=== PATIENT | male | born 1945 | race Two or more races ===

== ENCOUNTER 2017-01-18 08:58 | Outpatient (CLI) | payer MEDICARE ==
[2017-01-18 10:38] LABS: Hematocrit 40.1 % (42.0-52.0); Mean Platelet Volume 6.8 fL (7.4-10.4); Red Blood Cell (RBC) Count 4.52 mill/uL (4.70-6.10); White Blood Cell (WBC) Count 6.2 thou/uL (4.8-10.8)
[2017-01-18 10:43] LABS: Prothrombin Time 13.2 SEC (12.0-14.7)
[2017-01-18 10:48] LABS: Bilirubin Negative (Negative); Blood, Urine Negative (Negative); Glucose, Urine (Dipstick) Negative (Negative); Ketone, Urine Negative (Negative); Nitrite Negative (Negative); Protein, Urine (Dipstick) Negative (Neg-Trace); Urobilinogen 0.2 mg/dL (0.2-1.0)
[2017-01-18 10:50] LABS: Bacteria/HPF None Seen HPF (None Seen); Hyaline Casts/LPF 0-3 HYALINE CAST LPF (0-3 Hyaline); Squamous Epithelial None Seen HPF (0-3); WBC/HPF None Seen HPF (0-3)
[2017-01-18 10:57] LABS: Anion Gap 10 mmol/L (10-20); BUN (Urea Nitrogen) 12 mg/dL (8.4-25.7); Calc. Creatinine Clearance 0 mL/min (70-130); Calcium 9.8 mg/dL (7.8-10.44); Carbon Dioxide 32 mmol/L (23-31); Chloride 101 mmol/L (98-107); Estimated GFR-MDRD 73
== END 2017-01-18 08:59 | disposition home or self-care (01) ==
LOC: LABBT 08:58
PROVIDERS: ATTEND Orthopaedic Surgery
DX: Z01.818 Encounter for other preprocedural examination (principal); M19.012 Primary osteoarthritis, left shoulder
CPT/HCPCS: 80048; 81001; 85027; 85610; 86850; 86900; 86901; 87081; 93005; 93010

== ENCOUNTER 2017-01-21 10:00 | Inpatient (IN) | payer MEDICARE ==
[2017-01-18 09:14] VITALS: BMI 25.8
[2017-01-22] MEDS ORDERED: Midazolam HCl 2 mg/2 ml Vial ONE (06:21)
[2017-01-22] MEDS ORDERED: Fentanyl 100 MCG/2 ML VIAL ONE ×5 (06:21→10:08)
[2017-01-22] MEDS ORDERED: Ropivacaine 0.2% HCl/PF 20 ML ONE (06:21)
[2017-01-22] MEDS ORDERED: CEFAZOLIN/Water 2 GM/20 ML SYRINGE ONE (06:22)
[2017-01-22] MEDS ORDERED: Tranexamic Acid 1,000 MG/100 ML BAG ONE ×2 (06:22→09:08)
[2017-01-22] MEDS ORDERED: Vancomycin HCl 1.5 GM in Sodium Chloride 0.9% 250 ML 300 ML IVPB SCH ×2 (07:00→19:00)
--- NOTE | 2017-01-22 07:36 | HP ---
CHIEF COMPLAINT: Left shoulder pain. HISTORY OF PRESENT ILLNESS: Mr. Harry is a 71-year-old right-hand dominant male who presents with left shoulder pain for several years. The pain in his left is greater than his right. 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 The patient has history of 2 previous rotator cuff repairs. The patient states he had pain relief, immediately afterwards the pain elevated. The patient does have a history of chronic opioid use include pain patch as well as oral medications. The patient had extreme overhead elevation and the patient states his pain can be 8/10 without pain medicine, he said it is constant. He had some relief from his most recent injections, but his left hand is not functional. He had some intermittent radicular symptoms, but no constant pain. The patient has extreme pain with overhead motion. I discussed with him operative intervention for his left shoulder and he desires to proceed with shoulder replacement. PAST MEDICAL AND SURGICAL HISTORY: Crohn's abscess, hernia, gallbladder surgical history. Rh 07/08/2009 perirectal abscess, laparoscopic cholecystectomy, 2 previous rotator cuff repairs, and a previous on his left side and a right shoulder rotator cuff repair. MEDICATIONS: Humira, which was stopped in advance of surgery on 11/18/2016, aspirin, atorvastatin, Dexilant, Cymbalta, fentanyl, hydrocodone 10/325 and Detrol. ALLERGIES: No known drug allergies. SOCIAL HISTORY: Right hand dominant male. The patient is a nonsmoker. No illicit drug use. . The patient runs a dental office. PHYSICAL EXAMINATION: GENERAL: Alert and oriented male in no acute distress, resting comfortably in bed. LEFT SHOULDER: Left shoulder shows well-healed previous surgical scars. External rotation is about 10 degrees, elevation is 90 degrees. The patient has with elevation 100, ER 30. The patient has good motion, his strength is just fair. Subscapularis is good. The patient has tenderness to the biceps groove. His loss of stability is negative. The patient is neurovascularly intact. He has equivocal Omid's, positive Morejon, neurovascularly intact. His left upper extremity has got tape adhesion from his previous fentanyl patches on his skin. The patient's MRI shows a humeral head, full thickness supraspinatus tear with leading edge infraspinatus, poorly defined biceps, possible rupture versus tenodesis, muscle atrophy. ASSESSMENT: Large rotator cuff tear with failed arthroscopic rotator cuff repairs. LABORATORY: Negative MRSA screening. The patient's white blood cell count 6.2 , H\T\H 13 and 40, platelet count 200, his INR is 1. The patient's creatinine is 1.01. The patient has a negative UA, ESR 5, CRP of 0.8. ASSESSMENT AND PLAN: Failed left shoulder arthroscopic rotator cuff repair x2 and with full thickness supraspinatus and infraspinatus tear. PLAN: I discussed with patient the risks and benefits of his potential options to include an arthroscopic superior capsular reconstruction versus a left reverse shoulder arthroplasty with possible biceps tenodesis. I discussed with the patient that the reverse shoulder arthroplasty would be a more consistent outcome as far as his pain control. I discussed that he may continue to have pain after surgery. I discussed the risks and benefits of surgery to include pain, scar, bleeding, infection, decreased range of motion or strength, failure of procedure, continued pain despite surgical intervention, decreased function, a different look of the shoulder postoperatively, and the risk of loss of life or limb. The patient understands the risks and benefits of the procedure and elected to proceed. The patient will be taken back to the operative suite for a left shoulder reverse shoulder arthroplasty. SOULEYMANE
[2017-01-22] MEDS ORDERED: Phenylephrine 10 MG/NS 250 ML 250 ML ONE (08:26)
[2017-01-22] MEDS ORDERED: Tranexamic Acid 1,000 MG in Sodium Chloride 0.9% 100 ML IVPB SCH (09:30)
[2017-01-22] MEDS ORDERED: Promethazine HCl 25 MG/ML VIAL IM PRN ×2 (09:31→09:39)
[2017-01-22] MEDS ORDERED: Ondansetron HCl/PF 4 MG/2 ML Vial IVP PRN ×3 (09:31→10:44)
[2017-01-22] MEDS ORDERED: Promethazine HCl 25 MG/ML VIAL SLOW IVP PRN (09:31)
[2017-01-22] MEDS ORDERED: Meperidine HCl/PF 25 MG/ML VIAL SLOW IVP PRN (09:31)
[2017-01-22] MEDS ORDERED: Ropivacaine 0.2% 550 ML 550 ML NERVE BLCK SCH (09:39)
[2017-01-22] MEDS ORDERED: Zolpidem Tartrate 5 MG TAB PO PRN (09:39)
[2017-01-22] MEDS ORDERED: HYDROcodone/Acetaminophen 10/325 mg Tablet PO PRN ×3 (09:39→10:44)
[2017-01-22] MEDS ORDERED: traMADol HCl 50 MG TAB PO PRN ×4 (09:39→10:44)
--- NOTE | 2017-01-22 09:56 | RAD ---
TWO VIEWS LEFT SHOULDER: Date: 01-22-17 Comparison: None. History: Arthroplasty. FINDINGS: There is a left shoulder arthroplasty present, with no evidence for hardware failure, dislocation, o r acute fracture. Cutaneous cinthia are present. IMPRESSION: Status post left shoulder arthroplasty. POS: RENEE
[2017-01-22] MEDS ORDERED: diphenhydrAMINE 50 MG CAP PO PRN (10:44)
[2017-01-22] MEDS ORDERED: Bisacodyl 10 MG SUPP PR PRN (10:44)
[2017-01-22] MEDS ORDERED: Ondansetron ODT 4 MG TAB PO PRN (10:44)
[2017-01-22] MEDS ORDERED: Milk Of Magnesia 30 ML UDCUP PO PRN (10:44)
[2017-01-22] MEDS ORDERED: Acetaminophen 325 MG TAB PO PRN (10:44)
[2017-01-22] MEDS ORDERED: [UNRECOGNIZED DRUG - REMARK] TOP PRN (11:14)
--- NOTE | 2017-01-22 11:44 | OP ---
DATE OF PROCEDURE: 01/22/2017 PREOPERATIVE DIAGNOSIS: Full thickness retracted supraspinatus tear and leading edge of the suprasp inatus tear. POSTOPERATIVE DIAGNOSIS: Full thickness retracted supraspinatus tear and leading edge of the supras pinatus tear, also with previous biceps tenodesis. PROCEDURE PERFORMED: Left reverse shoulder arthroplasty. STAFF: Seth Nevarez M.D. CRIB PAD MAKER: Efrain Leo PA-C ANESTHESIA: Caraballo. The patient received general endotracheal intubation with interscalene block. ESTIMATED BLOOD LOSS: 200 mL. TOURNIQUET TIME: None. IMPLANTS: A Tornier 25 mm baseplate with a center 36 mm glenoid Aequalis reversed II sphere, a size 3B standard Aequalis Ascend Flex stem and a reverse +6 mm poly insert, and a reversed flex shoulder low offset tray. ANTIBIOTICS: Vancomycin 1.5 grams, TXA 2 grams, TXA 1 gram. COMPLICATIONS: None. HISTORY OF PRESENT ILLNESS: Mr. Harry is a 71-year-old male with history of 2 previous rotator cuff surgeries. The patient had failure and MRI evidence of an increase full thickness supraspinatu s tear and leading edge infraspinatus tear. I discussed with the patient that either a superior cap sular reconstruction versus reverse shoulder arthroplasty would be performed. I discussed risks and benefits of both. The patient elected for reverse shoulder arthroplasty. I discussed the risks an d benefits of surgery to include pain, scar, bleeding, infection, damage to vital structures, decrea sed motion or strength, fracture, need for further surgeries, failure of procedure, continued pain a nd despite surgical intervention, need for revision surgery, loss of life or limb. The patient unde rstood the risks and benefits and elected to proceed. PROCEDURE IN DETAIL: Timeout was performed designating the patient's left upper extremity as the op erative site based on sight, consents, and markings. The left upper extremity was prepped and drape d in sterile fashion. He had been placed in a beach chair position. We made a deltopectoral incisi on, came down. The vein was actually looked scarred in from his previous portal site and did not lo ok very functional. It was taken medially, actually was tagged and was ligated the cephalic vein. We then took the deltoid, came into the plane, found the scar plane in the deltopectoral fascia whic h was taken down, biceps had been tenodesed, it was utilized to evaluate the subscapularis. We took down the subscapularis, peeled off the subscapularis tendon, took down the subscapularis, so we the n exposed the entire head. I cut off the articular head and articular surface, there was no suprasp inatus remaining, it was just infraspinatus leading edge posteriorly. I cut the head, removed the b one spur, then went up to 20 degrees of retroversion, broached and then placed my size 3B stem, impa cted it. I then moved back to the patient's shoulder. I then broached. After I did this I then ex posed the glenoid at 360 degree release with cautery just on the bone edge blunt dissection, I then exposed the patient's inferior neck using blunt dissection, ensured staying off the bone. After com pleting my 360 degree release and being happy with the complete resection of the capsule at 360 degr ees we then cleaned up some of the cartilage. I then placed my center hole inferiorly to place my 2 5 mm baseplate, drilled. I then used a 2 step process to clean cartilage and circumferentially ream and then placed my baseplate, tapped into place, drilled 2 anterior and posterior nonlocking screws , two superior and inferior locking screws. After being happy with stability of the scapula I then placed my centralized 36 mm sphere, screwed into place, had good fit. I then moved back to the [facility]. I reduced with 3B and 6 mm poly, had a tight fit, was overall happy. I then removed, placed my 3B stem, I drilled holes for #3 FiberWire #5 Ethibond to pass the subscapularis, tied about 20 d egrees or 15 degrees of external rotation sewed it into place. I then washed. I then closed the elder bscapularis. I then washed out the joint. There was a tear in the deltoid which was closed with #2 Vicryl, #2 Vicryl to close the deltopectoral interval. I then closed subcutaneous with 2-0 and the n put cinthia in the incision, placed paper tape. The patient had a dressing applied. He will be p laced in a sling. He will work on elbow, wrist, and hand motion, receive antibiotics, evaluate post op pain tomorrow.
[2017-01-22] MEDS: Ketorolac Tromethamine 30 MG/ML VIAL IVP SCH ×3 (13:24→23:49)
[2017-01-22] MEDS: CEFAZOLIN/Water 2 GM/20 ML SYRINGE SLOW IVP SCH ×2 (15:09→21:28)
[2017-01-22] MEDS ORDERED: Lidocaine 1% PF 5 ML VIAL ONE (15:11)
[2017-01-22] MEDS ORDERED: PHENYLEPHRINE-NS 100 MCG/ML 10 ML SYRINGE ONE (15:11)
[2017-01-22] MEDS ORDERED: Glycopyrrolate 0.2 MG/ML 5 ML SYRINGE ONE (15:11)
[2017-01-22] MEDS ORDERED: Propofol 200 MG/20 ML VIAL ONE (15:11)
[2017-01-22] MEDS ORDERED: Ropivacaine 0.5% HCl/PF (150 MG/30 ML VIAL) ONE (15:17)
[2017-01-22] MEDS: HYDROcodone/Acetaminophen 10/325 mg Tablet PO PRN ×2 (16:15→21:57)
[2017-01-22] MEDS: Famotidine 20 MG TAB PO SCH ×2 (17:38→20:24)
[2017-01-22] MEDS: Fentanyl 100 MCG/2 ML VIAL IV PRN ×2 (20:21→23:54)
[2017-01-22] MEDS ORDERED: TROSPIUM 20 MG TABLET PO SCH (21:00)
[2017-01-22] MEDS ORDERED: Atorvastatin Calcium 20 MG TAB PO SCH (21:00)
[2017-01-23] MEDS: HYDROcodone/Acetaminophen 10/325 mg Tablet PO PRN ×2 (02:15→06:16)
[2017-01-23] MEDS: Ketorolac Tromethamine 30 MG/ML VIAL IVP SCH (05:49)
[2017-01-23] MEDS: Famotidine 20 MG TAB PO SCH (08:04)
[2017-01-23 09:17] VITALS: BP 127/78; TEMP 98
--- NOTE | 2017-01-23 12:18 | DIS ---
DATE OF ADMISSION: 01/22/2017 DATE OF DISCHARGE: 01/23/2017 PREOPERATIVE DIAGNOSES: Left full thickness supraspinatus tear, retracted, irreparable. POSTOPERATIVE DIAGNOSES: Biceps tenotomy, . PROCEDURE PERFORMED: Left reverse shoulder arthroplasty. HISTORY OF PRESENT ILLNESS: Mr. Harry is a pleasant 71-year-old male with multiple years of lef t shoulder pain. Patient has a history of chronic pain in his left shoulder and continued to give h im difficulty. I discussed the risk of his left reverse shoulder arthroplasty to include pain, scar , bleeding, infection, damage to his vital structures, nonunion, malunion, fracture, failure of impl ants. The patient desired to proceed with surgery, understood the risks and benefits and elected to proceed. The patient underwent an uneventful left reverse shoulder arthroplasty. Postoperatively pain was controlled with a block and will be discharged home with pain medications as per Dr. Gustavo mondragon. The patient will restart his home medications. The patient will follow up with me in 2 week s. He will perform elbow, forearm, wrist, and hand motion until followup and remain in the sling.
== END 2017-01-23 09:45 | disposition home or self-care (01) | DRG 483 ==
LOC: SURG A 01-22 05:44 → SURG B 01-22 10:19
PROVIDERS: ADMIT Orthopaedic Surgery; ATTEND Orthopaedic Surgery
PROC: 0RRK00Z Replacement of Left Shoulder Joint with Reverse Ball and Socket Synthetic Substitute, Open Approach (ICD-10-PCS; principal; 2017-01-22)
PROC: 3E0T3BZ Introduction of Anesthetic Agent into Peripheral Nerves and Plexi, Percutaneous Approach (ICD-10-PCS; 2017-01-22)
DX: M75.102 Unspecified rotator cuff tear or rupture of left shoulder, not specified as traumatic (principal); K50.90 Crohn's disease, unspecified, without complications; Z79.891 Long term (current) use of opiate analgesic; Z79.82 Long term (current) use of aspirin; G89.29 Other chronic pain; M25.512 Pain in left shoulder
CPT/HCPCS: 36415; 80048; 81001; 85027; 85610; 85652; 86140; 86850; 86900; 86901; 87081; 93005; 93010; A4216; A4306; G8978-GP-CH; G8979-GP-CH; G8980-GP-CH; G8987-GO-CJ; G8988-GO-CJ; G8989-GO-CJ; J1885; J2001; J2250; J2704; J2795; J3010; J3370; J7050

== ENCOUNTER 2017-04-24 08:01 | Outpatient (CLI) | payer MEDICARE | END 2017-04-24 08:02 | disposition home or self-care (01) | LOC: BICCT 08:01 | PROVIDERS: ATTEND Internal Medicine Gastroenterology | DX: K50.10 Crohn's disease of large intestine without complications (principal); R10.13 Epigastric pain; K59.00 Constipation, unspecified; N28.1 Cyst of kidney, acquired; Z90.49 Acquired absence of other specified parts of digestive tract | CPT/HCPCS: 74160 ==

== ENCOUNTER 2018-03-05 12:22 | Day surgery (SDC) | payer MEDICARE ==
[2018-03-04 11:39] VITALS: BMI 25.8
[2018-03-05] MEDS ORDERED: Sodium Chloride 0.9% 10 ML ONE (13:42)
[2018-03-05] MEDS ORDERED: Bupivacaine HCl 0.5%/Epinephrine 1:200,000/PF 30 ml Vial ONE ×2 (13:42→15:55)
[2018-03-05] MEDS ORDERED: CEFAZOLIN 1 GM VIAL ONE (14:40)
[2018-03-05] MEDS ORDERED: Sodium Chloride 0.9% 100 ML ONE (14:41)
[2018-03-05] MEDS ORDERED: Fentanyl 100 MCG/2 ML VIAL ONE (15:16)
[2018-03-05] MEDS ORDERED: Propofol 500 MG/50 ML VIAL ONE (15:25)
[2018-03-05] MEDS ORDERED: Midazolam HCl 2 mg/2 ml Vial ONE (15:30)
[2018-03-05] MEDS ORDERED: Bupivacaine/Epinephrine 0.25% 30 ML VIAL ONE (16:30)
[2018-03-05] MEDS ORDERED: Ondansetron PF 4 MG/2 ML Vial ONE (16:32)
[2018-03-05] MEDS ORDERED: PROPOFOL 200 MG/20 ML VIAL ONE (16:32)
--- NOTE | 2018-03-06 08:13 | RAD ---
INTRAOPERATIVE RADIOGRAPH OF THORACIC SPINE: Date: 03/05/18 COMPARISON: None. HISTORY: Stimulator placement. FINDINGS: A single, coned-down frontal radiograph of the thoracic spine demonstrates two dorsal column stimulat ors overlying the mid thoracic spine. Exact location is limited on single coned-down view. IMPRESSION: Intraoperative imaging as above. POS: JOHN PAUL
--- NOTE | 2018-03-07 07:33 | OP ---
DATE OF PROCEDURE: 03/05/2018 PREOPERATIVE DIAGNOSES: 1. Chronic abdominal pain. 2. Chronic pain syndrome. 3. Complex regional pain syndrome. ANESTHESIA: TIVA. PROCEDURES PERFORMED: 1. Implantation of a right spinal cord stimulation electrode system, [employer]. 2. Implantation of a left spinal cord stimulation electrode array, [employer]. 3. Implantation of non-rechargeable internal pulse generator. 4. Intraoperative programming. SUMMARY: Risks and benefits were discussed with the patient including, but not limited to bleeding, infection, worsening of pain, and relief of pain and he understood these risks. He has already had a successful trial of percutaneous outpatient spinal cord stimulation. He was taken to the OR, prepped and draped in standard fashion, placed prone, DuraPrep prep and let to dry. Fluoroscopic guidance was used to identify the thoracolumbar junction. The T12-L1 interspace was chosen as entry into the spinal canal. Incision was made down to the spinous process and the Bovie and Metzenbaum for dissection and hemostasis through the fascia. The supplied Tuohy needles were advanced into the ligament of flavum at L1-L2 using both the right and left paramedian approach, loss of resistance technique; one pass, no paresthesia, CHF, or heme. The left electrode was implanted over the dorsal columns with the most cephalad electrode at the superior endplate of T5. The right electrode was then placed parallel to the first at the superior endplate of T5. Intraoperative programming achieved appropriate back and abdominal stimulation corresponding and concordant with the patient's dermatology. The stylets were then removed intact. The needles were removed intact. Each lead was anchored using supplied [employer] locking anchors and each anchor to the fascia using two 2-0 silk sutures. Attention was then turned to the pocket, left buttock that was a previously designated site for the generator chosen by the patient. After adequate local anesthesia, an incision was carried out to the fascia. The fascia was undermined to form the pocket. Tunneling between incisions using supplied straw tunneler. The leads were passed, placed into the IPG. All impedances were checked and were intact. The IPG was then placed in the pocket logo side out and closure was accomplished in both incisions using interrupted 2-0 Vicryl in layers and running subcuticular 4 -0 Rapide. Dermabond and 4x4s with Medipore tape was used for dressing. Prior to closure, all counts were correct x2. There were no complications. Job ID: [id number] MTDD
== END 2018-03-05 18:00 | disposition home or self-care (01) ==
LOC: SDC 12:22
PROVIDERS: ATTEND Anesthesiology Pain Medicine
PROC: 0JH70DZ Insertion of Multiple Array Stimulator Generator into Back Subcutaneous Tissue and Fascia, Open Approach (ICD-10-PCS; principal; 2018-03-05)
PROC: 00HU3MZ Insertion of Neurostimulator Lead into Spinal Canal, Percutaneous Approach (ICD-10-PCS; 2018-03-05)
DX: G89.4 Chronic pain syndrome (principal); G90.50 Complex regional pain syndrome I, unspecified; M10.9 Gout, unspecified; Z79.82 Long term (current) use of aspirin; Z79.899 Other long term (current) drug therapy
CPT/HCPCS: 72020; 76001; J0670; J0690; J2250; J2405; J2704; J3010; J3490; J7050

== ENCOUNTER 2018-08-13 12:09 | Day surgery (SDC) | payer MEDICARE ==
[2018-08-12 12:31] VITALS: BMI 26.5
[2018-08-13] MEDS ORDERED: PROPOFOL 200 MG/20 ML VIAL ONE (13:26)
[2018-08-13] MEDS ORDERED: CEFAZOLIN 1 GM VIAL ONE (13:30)
[2018-08-13] MEDS ORDERED: Sodium Chloride 0.9% 100 ML ONE (13:30)
[2018-08-13] MEDS ORDERED: Sodium Chloride 0.9% 0 ML ONE (14:32)
[2018-08-13] MEDS ORDERED: Bupivacaine HCl 0.5%/Epinephrine 1:200,000/PF 30 ml Vial ONE (14:32)
[2018-08-13] MEDS ORDERED: Fentanyl 100 MCG/2 ML VIAL ONE (14:50)
[2018-08-13] MEDS ORDERED: Midazolam HCl 2 mg/2 ml Vial ONE (14:50)
[2018-08-13] MEDS ORDERED: Propofol 500 MG/50 ML VIAL ONE (15:29)
[2018-08-13] MEDS ORDERED: HYDROcodone/Acetaminophen 5/325 mg Tablet ONE (17:13)
--- NOTE | 2018-08-13 17:15 | RAD ---
Frontal radiograph thoracic spine: 08/13/2018 HISTORY: Pain stimulator FINDINGS: There is a single coned down frontal radiograph of the spine. This may represent the upper lumbar spine. There is a metallic linear structure partially overlying the vertebral bodies. No pain stimulating leads noted on this exam. IMPRESSION: Limited radiograph of the spine.
== END 2018-08-13 17:50 | disposition home or self-care (01) ==
LOC: SDC 12:09
PROVIDERS: ATTEND Anesthesiology Pain Medicine
PROC: 00PU3MZ Removal of Neurostimulator Lead from Spinal Canal, Percutaneous Approach (ICD-10-PCS; principal; 2018-08-13)
PROC: 00HU3MZ Insertion of Neurostimulator Lead into Spinal Canal, Percutaneous Approach (ICD-10-PCS; 2018-08-13)
DX: T85.122A Displacement of implanted electronic neurostimulator of spinal cord electrode (lead), initial encounter (principal); G89.4 Chronic pain syndrome; M96.1 Postlaminectomy syndrome, not elsewhere classified; G90.50 Complex regional pain syndrome I, unspecified; K50.90 Crohn's disease, unspecified, without complications; E78.5 Hyperlipidemia, unspecified; G47.33 Obstructive sleep apnea (adult) (pediatric); Z79.82 Long term (current) use of aspirin; Z79.899 Other long term (current) drug therapy
CPT/HCPCS: 63663; 72020; 76000; C1778; J0131; J0670; J0690; J2250; J2704; J3010; J3490

== ENCOUNTER 2018-10-08 08:22 | Outpatient (CLI) | payer MEDICARE ==
--- NOTE | 2018-10-08 09:21 | RAD ---
RIGHT FORELEG 2 VIEWS: INDICATION: Pain along the right lower lateral aspect of the foreleg. COMPARISON: None. FINDINGS: No acute fracture or subluxation is evident. No area of abnormal periosteal reaction is noted. No o steolytic or osteoblastic lesion is identified. There are vascular calcifications within the proxima l foreleg. IMPRESSION: No acute osseous abnormality. POS: CET
== END 2018-10-08 08:23 | disposition home or self-care (01) ==
LOC: BICRAD 08:22
PROVIDERS: ATTEND Family Medicine
DX: M79.604 Pain in right leg (principal)

== ENCOUNTER 2018-10-24 05:38 | Day surgery (SDC) | payer MEDICARE ==
[2018-10-20 09:03] VITALS: BMI 25.8
--- NOTE | 2018-10-23 23:11 | HP ---
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 He has had his current stimulator system in for many years. Unfortunately, he has had to have it revised previously for migration and now the line leaks have migrated again. He hopes to discuss paddle lead placement. PAST MEDICAL HISTORY: Significant for Crohn disease and chronic back pain. SURGICAL HISTORY: Rotator cuff x2 in the left shoulder and then one time on the right. CURRENT MEDICATIONS: 1. Humira. 2. Actonel. 3. Lipitor. 4. Detrol LA. ALLERGIES: NO KNOWN DRUG ALLERGIES. PHYSICAL EXAMINATION: GENERAL: The patient is alert and oriented x3. NEUROLOGIC: Gait is normal. No ataxia. EXTREMITIES: Upper extremity motor exam is normal. Lower extremity motor exam is normal. ASSESSMENT: Chronic pain syndrome and dorsal column stimulator dysfunction. PLAN: Dr. López met with the patient, reviewed imaging, advocated for dorsal column stimulator revision with paddle lead placement. He explained to the patient the risks, benefits, and alternatives to the procedure. The patient expressed understanding and elected to move forward with surgery as discussed. I do believe the patient is mentally competent and capable of making medical decisions for himself. We will move forward with surgery as planned. Job ID: [id number]
[2018-10-24] MEDS ORDERED: ceFAZolin Sodium (SDC) 2 GM/100 ML BAG ONE ×2 (06:03→11:35)
[2018-10-24] MEDS ORDERED: Thrombin 5000 UNITS/5 ML VIAL ONE (06:24)
[2018-10-24] MEDS ORDERED: Bupivacaine HCl 0.5%/Epinephrine 1:200,000/PF 30 ml Vial ONE (06:24)
[2018-10-24] MEDS ORDERED: Fentanyl 100 MCG/2 ML VIAL ONE (06:59)
[2018-10-24] MEDS ORDERED: HYDROmorphone 2 MG/ML VIAL ONE (07:52)
[2018-10-24] MEDS ORDERED: HYDROcodone/Acetaminophen 5/325 mg Tablet ONE (11:01)
--- NOTE | 2018-10-24 11:50 | RAD ---
THORACIC SPINE: A single AP fluoroscopic view taken. INDICATION: Dorsal column stimulator placement. FINDINGS/IMPRESSION: A single image shows retractors in place overlying the lower thoracic spine and dorsal column leads o verlie the lower thoracic spine and what appears to be the T9 and T10 levels. POS: JOHN PAUL
[2018-10-24] MEDS ORDERED: PHENYLEPHRINE-NS 100 MCG/ML 10 ML SYRINGE ONE (13:52)
[2018-10-24] MEDS ORDERED: PROPOFOL 200 MG/20 ML VIAL ONE (13:52)
[2018-10-24] MEDS ORDERED: Dexamethasone 20 MG/5 ML VIAL ONE (13:52)
[2018-10-24] MEDS ORDERED: ePHEDrine 50 MG/ML VIAL ONE (13:52)
[2018-10-24] MEDS ORDERED: Lidocaine 1% PF 5 ML VIAL ONE (13:52)
[2018-10-24] MEDS ORDERED: Ondansetron PF 4 MG/2 ML Vial ONE (13:52)
[2018-10-24] MEDS ORDERED: Ketorolac Tromethamine 30 MG/ML VIAL ONE (13:52)
[2018-10-24] MEDS ORDERED: Glycopyrrolate 0.2 MG/ML 5 ML SYRINGE ONE (13:52)
[2018-10-24] MEDS ORDERED: Rocuronium Bromide 10 MG/ML (10ML VIAL) ONE (13:52)
--- NOTE | 2018-10-24 16:26 | OP ---
DATE OF PROCEDURE: 10/24/2018 OB TECH: Sourav Vega PA-C. INDICATION: Malfunctioning dorsal column stimulator. PROCEDURE PERFORMED: Revision of dorsal column stimulator. ANESTHESIA: General. DESCRIPTION OF PROCEDURE: The patient was brought into the operating room and placed under general anesthesia. He was flipped from the supine to prone position on the operating room table. The 3 linear incisions were prepped and draped. The 2 were pre-existing incisions, one over the generator side, which was well tipped. The second was a lower thoracic upper lumbar incision, which was at the location of anchor, and the third was an incision around the T6 lamina. After prepping and draping and after an appropriate preoperative pause, the incisions were opened. A laminectomy was performed along the inferior aspect of T6 and the location was confirmed using C-arm fluoroscopy in the AP plane. After performing the laminectomy, the line, lead, electrodes as well as the generator were removed in total. Paddle lead electrodes were then passed from the hip incision up to the thoracic incision and carefully placed within the epidural space. The location was confirmed using C-arm fluoroscopy in AP plane, which showed them spanning the C5-C6 interspace and they were located along the midline. The appropriate location was confirmed by both the device rep as well as Dr. Reynoso. The leads were then secured into place with multiple suture. The paddle lead electrodes were then connected to the same generator that the patient had in before surgery and that was carefully tucked away in the same pocket over the left hip. All incisions were then irrigated and hemostasis was maintained throughout. The wounds were then closed in anatomic layers and a pressure dressing was applied. There were no known procedural complications. Job ID: [id number]
== END 2018-10-24 12:20 | disposition home or self-care (01) ==
LOC: SDC 05:38
PROVIDERS: ATTEND Neurological Surgery
PROC: 00WU0MZ Revision of Neurostimulator Lead in Spinal Canal, Open Approach (ICD-10-PCS; principal; 2018-10-24)
PROC: 0JWT0MZ Revision of Stimulator Generator in Trunk Subcutaneous Tissue and Fascia, Open Approach (ICD-10-PCS; 2018-10-24)
DX: T85.192A Other mechanical complication of implanted electronic neurostimulator of spinal cord electrode (lead), initial encounter (principal); G89.4 Chronic pain syndrome; K50.90 Crohn's disease, unspecified, without complications; Z79.899 Other long term (current) drug therapy
CPT/HCPCS: 72020; 76000; J0670; J0690; J1170; J3010

== ENCOUNTER 2019-02-24 07:47 | Outpatient (CLI) | payer MEDICARE ==
[2019-02-24 10:39] LABS: Hemoglobin 14.7 g/dL (14.0-18.0); Mean Corpuscular HGB CONC 34.1 g/dL (32.0-36.0); Mean Corpuscular Hemoglobin 29.9 pg (27.0-31.0); Mean Corpuscular Volume 87.7 fL (78.0-98.0); Mean Platelet Volume 6.4 fL (7.4-10.4); Platelet Count 220 thou/uL (130-400); RBC Distribution Width 12.9 % (11.5-14.5); Red Blood Cell (RBC) Count 4.92 mill/uL (4.70-6.10); White Blood Cell (WBC) Count 10.2 thou/uL (4.8-10.8)
[2019-02-24 10:44] LABS: INR-International Normal Ratio 0.9; PTT 23.3 SEC (22.9-36.1); Prothrombin Time 12.1 SEC (12.0-14.7)
[2019-02-24 10:50] LABS: Anion Gap 9 mmol/L (10-20); BUN (Urea Nitrogen) 15 mg/dL (8.4-25.7); Calc. Creatinine Clearance 0 mL/min (70-130); Calcium 9.2 mg/dL (7.8-10.44); Carbon Dioxide 31 mmol/L (23-31); Chloride 101 mmol/L (98-107); Estimated GFR-MDRD 76; Glucose 164 mg/dL (83-110); Potassium 3.9 mmol/L (3.5-5.1); Sodium 137 mmol/L (136-145)
== END 2019-02-24 07:48 | disposition home or self-care (01) ==
LOC: LABBT 07:47
PROVIDERS: ATTEND Surgery
DX: Z01.812 Encounter for preprocedural laboratory examination (principal); M54.16 Radiculopathy, lumbar region; M48.061 Spinal stenosis, lumbar region without neurogenic claudication
CPT/HCPCS: 80048; 85027; 85610; 85730

== ENCOUNTER 2019-03-03 05:43 | Day surgery (SDC) | payer MEDICARE ==
[2019-02-24 09:20] VITALS: BMI 25.8
[2019-03-03] MEDS ORDERED: Thrombin 5000 UNITS/5 ML VIAL ONE (06:36)
[2019-03-03] MEDS ORDERED: Sodium Chloride 0.9% 10 ML ONE (06:36)
[2019-03-03] MEDS ORDERED: Fentanyl 250 MCG/5 ML VIAL ONE (06:58)
[2019-03-03] MEDS ORDERED: tiZANidine HCl 4 MG TAB PO PRN (10:08)
[2019-03-03] MEDS ORDERED: Acetaminophen 325 MG TAB PO PRN (10:08)
[2019-03-03] MEDS ORDERED: Acetaminophen/Codeine 30-300mg Tablet PO PRN (10:08)
[2019-03-03] MEDS ORDERED: Milk Of Magnesia 30 ML UDCUP PO PRN (10:08)
[2019-03-03] MEDS ORDERED: Ondansetron PF 4 MG/2 ML Vial IVP PRN (10:08)
[2019-03-03] MEDS ORDERED: Mag-Al 1200 mg/1200 mg/30 ML UDCUP PO PRN (10:08)
[2019-03-03] MEDS ORDERED: traMADol HCl 50 MG TAB PO PRN (10:08)
[2019-03-03] MEDS ORDERED: Fleet Enema 133 ML BOT PR PRN (10:08)
[2019-03-03] MEDS ORDERED: Bisacodyl 10 MG SUPP PR PRN (10:08)
[2019-03-03] MEDS ORDERED: SUMAtriptan Succinate 50 MG TAB PO PRN (10:21)
[2019-03-03] MEDS ORDERED: Morphine 2 MG/ML SYRINGE ONE ×3 (10:49→13:47)
[2019-03-03] MEDS ORDERED: Morphine 4 MG/ML VIAL ONE (11:14)
[2019-03-03] MEDS ORDERED: Tamsulosin HCl 0.4 MG CAP PO SCH (12:00)
[2019-03-03] MEDS ORDERED: CEFAZOLIN 2 GM in Premix Bag 1 BAG IVPB SCH (14:00)
[2019-03-03] MEDS ORDERED: HYDROcodone/Acetaminophen 7.5/325 mg Tablet ONE (14:15)
[2019-03-03] MEDS ORDERED: Tamsulosin HCl 0.4 MG CAP ONE (14:16)
[2019-03-03] MEDS ORDERED: Vecuronium 10 MG VIAL ONE (14:36)
[2019-03-03] MEDS ORDERED: ePHEDrine/0.9% NaCl/PF SYRINGE 50 mg/10 ml ONE (14:36)
[2019-03-03] MEDS ORDERED: PROPOFOL 200 MG/20 ML VIAL ONE (14:36)
[2019-03-03] MEDS ORDERED: Glycopyrrolate 0.2 MG/ML 5 ML SYRINGE ONE (14:36)
[2019-03-03] MEDS ORDERED: Ondansetron PF 4 MG/2 ML Vial ONE (14:36)
--- NOTE | 2019-03-03 14:54 | OP ---
DATE OF PROCEDURE: 03/03/2019 LOCATION: OR 12. ASSURANCE SOURCING MANAGER: Gabe Swanson PA-C. PREPROCEDURE DIAGNOSIS: Lumbar stenosis with low back and right greater than left leg pain. POSTPROCEDURE DIAGNOSIS: Lumbar stenosis with low back and right greater than left leg pain. PROCEDURE PERFORMED: L3-L4 and L4-L5 laminectomies, partial facetectomies, and foraminotomies over the L3, L4, and L5 nerve roots. DESCRIPTION OF PROCEDURE: After informed consent was obtained from the patient, the patient was brought to the OR. Proper patient, pause, and identification were carried out. He was placed under excellent endotracheal anesthesia and positioned prone on the OR table. All appropriate points were padded. We identified a small incision that would allow for approach to the L3, L4, L5 dorsal spines and this region was sterilely cleansed, prepared, and draped. Proper patient, pause, and identification were carried out. The wound was then opened with combination of sharp, monopolar, and blunt dissection. We exposed the L3, L4, L5 dorsal spines and lamina. Localization film confirmed area of interest and then performed L3, L4, L5 laminectomies, partial facetectomies, and foraminotomies. There was no spinal fluid leak. Copious irrigation occurred throughout as did maximizing hemostasis. The wound was then closed in anatomic layers following sprinkling of vancomycin powder. The patient emerged from anesthesia. Job ID: [id number]
[2019-03-03] MEDS: Sodium Chloride 0.9% 1,000 ML IV SCH (15:59)
[2019-03-03] MEDS: CEFAZOLIN 2 GM in Premix Bag 1 BAG IVPB SCH ×2 (16:53→23:07)
[2019-03-03] MEDS: Morphine 2 MG/ML SYRINGE SLOW IVP PRN ×3 (17:19→23:06)
[2019-03-03] MEDS: Trospium 20 MG TAB PO SCH (20:58)
[2019-03-03] MEDS: HYDROcodone/Acetaminophen 7.5/325 mg Tablet PO PRN (20:58)
[2019-03-03] MEDS ORDERED: Atorvastatin Calcium 20 MG TAB PO SCH (21:00)
[2019-03-03] MEDS ORDERED: Citalopram 20 MG TAB PO SCH (21:00)
[2019-03-04] MEDS: Sodium Chloride 0.9% 1,000 ML IV SCH (00:31)
[2019-03-04 00:38] VITALS: BP 151/79; TEMP 99
[2019-03-04] MEDS ORDERED: HYDROcodone/Acetaminophen 7.5/325 mg Tablet ONE (05:57)
[2019-03-04] MEDS ORDERED: predniSONE 20 MG TAB PO SCH (08:00)
[2019-03-04] MEDS: Trospium 20 MG TAB PO SCH (08:33)
[2019-03-04] MEDS: HYDROcodone/Acetaminophen 7.5/325 mg Tablet PO PRN (09:54)
--- NOTE | 2019-03-04 11:41 | PRG ---
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 His leg pain has resolved. He has some incisional pain. He has already been mobilizing, voiding on his own, and tolerating orals. He has excellent strength. We went over do's and don'ts in the postoperative period, and followup is arranged. Job ID: [id number]
[2019-03-04] MEDS ORDERED: CEFAZOLIN 2 GM in Premix Bag 1 BAG IVPB SCH (16:00)
--- NOTE | 2019-03-05 21:21 | EKG ---
Test Reason : PREOP Blood Pressure : / mmHG Vent. Rate : 082 BPM Atrial Rate : 082 BPM P-R Int : 150 ms QRS Dur : 086 ms QT Int : 316 ms P-R-T Axes : 027 014 038 degrees QTc Int : 369 ms Normal sinus rhythm Normal ECG When compared with ECG of 18-JAN-2017 09:40, Criteria for Inferior infarct are no longer Present T wave inversion no longer evident in Inferior leads T wave amplitude has decreased in Lateral leads Confirmed by Anuja VARGAS ([id number]) on 03/05/2019 9:21:21 PM Referred By: FRANCOIS Confirmed By:Anuja VARGAS
== END 2019-03-04 10:10 | disposition home or self-care (01) ==
LOC: SDC 05:43 → SURG B 10:08 → SDC 03-04 10:10
PROVIDERS: ATTEND Surgery
PROC: 01NB0ZZ Release Lumbar Nerve, Open Approach (ICD-10-PCS; principal; 2019-03-03)
DX: M48.061 Spinal stenosis, lumbar region without neurogenic claudication (principal); M54.16 Radiculopathy, lumbar region
CPT/HCPCS: 76000; 93005; 93010; J0690; J2270; J2405; J2704; J3010; J3370; J3490

== ENCOUNTER 2019-03-06 08:54 | Inpatient (IN) | payer MEDICARE ==
[2019-03-06 09:28] LABS: #Lymphocytes 1.1 thou/uL (1.20-3.40); #Monocytes 0.4 thou/uL (0.11-0.59); #Neutrophils 4.8 thou/uL (1.40-6.50); %Basophils 0.5 % (0.0-1.0); %Eosinophils 0.5 % (0.0-10.0); %Lymphocytes 17.3 % (21.0-51.0); %Monocytes 6.6 % (0.0-10.0); %Neutrophils 75.1 % (42.0-75.0); Hemoglobin 12.8 g/dL (14.0-18.0); Mean Corpuscular Hemoglobin 29.7 pg (27.0-31.0); Mean Corpuscular Volume 87.3 fL (78.0-98.0); Mean Platelet Volume 5.8 fL (7.4-10.4); Platelet Count 193 thou/uL (130-400); RBC Distribution Width 13.3 % (11.5-14.5); Red Blood Cell (RBC) Count 4.31 mill/uL (4.70-6.10); White Blood Cell (WBC) Count 6.3 thou/uL (4.8-10.8)
[2019-03-06 09:49] LABS: ALT (SGPT) 22 U/L (8-55); AST (SGOT) 34 U/L (5-34); Albumin 3.2 g/dL (3.4-4.8); Alkaline Phosphatase 60 U/L (40-110); Anion Gap 12 mmol/L (10-20); BUN (Urea Nitrogen) 16 mg/dL (8.4-25.7); Bilirubin, Total 0.8 mg/dL (0.2-1.2); Calc. Creatinine Clearance 0 mL/min (70-130); Calcium 8.6 mg/dL (7.8-10.44); Carbon Dioxide 26 mmol/L (23-31); Chloride 100 mmol/L (98-107); Estimated GFR-MDRD 72; Globulin 2.8 g/dL (2.4-3.5); Glucose 103 mg/dL (83-110); Potassium 4.5 mmol/L (3.5-5.1); Sodium 133 mmol/L (136-145)
--- NOTE | 2019-03-06 09:54 | RAD ---
XR Chest 1 View Portable HISTORY: Weakness, sepsis COMPARISON: None FINDINGS: The heart is enlarged. The aorta is tortuous. There are patchy infiltrates in the lung fiel ds bilaterally, most prominent in the left upper lobe. No pneumothoraces or large effusions are seen. A dorsal spinal stimulator and changes of left shoulder arthroplasty are seen. IMPRESSION: Findings suspicious for pneumonia.
[2019-03-06] MEDS ORDERED: Piperacillin/Tazobactam 4.5 GM VIAL ONE (10:02)
[2019-03-06] MEDS ORDERED: Vancomycin 1.5 GRAM/300 ML BAG 1.5 GM in Premix Bag 1 BAG IVPB SCH (10:15)
[2019-03-06 10:30] LABS: Bacteria/HPF None Seen HPF (None Seen); Bilirubin Negative (Negative); Blood, Urine Negative (Negative); Clarity Clear (Clear); Glucose, Urine (Dipstick) Normal (Negative); Leukocyte Negative Leu/uL (Negative); Nitrite Negative (Negative); Protein, Urine (Dipstick) 30 mg/dL (Neg-Trace); Urobilinogen Normal mg/dL (Less than 2)
--- NOTE | 2019-03-06 10:50 | CT ---
CT PULMONARY ANGIOGRAM WITH IV CONTRAST AND 3-D POSTPROCESSING: HISTORY:Shortness of breath FINDINGS: There is good contrast opacification of the pulmonary arterial vasculature without filling defects to suggest pulmonary embolism. The thoracic aorta is without aneurysm or dissection. There are small bilateral pleural effusions. No pericardial effusion is seen. There are patchy alveolar opacities in the lungs bilaterally. Possibility of pneumonia should be cons idered. There are degenerative changes in the spine. Upper abdominal tomograms demonstrate changes of cholecystectomy. IMPRESSION: 1. No CT evidence of pulmonary embolism. 2. Findings suspicious for pneumonia.
--- NOTE | 2019-03-06 11:33 | PDOC.FPRHP ---
- History of Present Illness Chief Complaint: Dyspnea, Tachycardia, Fever History of Present Illness: Pt is a 73 yo male with PMH significant for Crohn's Disease, spinal stenosis who presents for dyspnea, fever 3 days post L3-L4 laminectomy by Dr. Randhawa. Symptoms started with dyspnea, fever, Tmax 104, on Saturday which was controlled with anti-pyretics. It was originally thought to be atalectasis, pt and family contacted Dr. Randhawa who instructed pt to us spirometer. Symptoms did not resolve on . Family wanted to bring pt to the emergency department at this time but pt was uncomfortable secondary to laminectomy. Dr. Harry administered rocephin on evening. Saturday morning pt remained with fever, dyspnea and found to be confused. At this time family brought the pt to the emergency department. Dr. Harry was present during the interview and states pt was delirious. During the interview she noted he was close to baseline but remained confused. At baseline he does not have dementia, he is able to ambulate on own. Dr. Randhawa saw patient in the emergency department. Dr. Navarro is GI caring for Mr. Sandoval's Crohn's. In the ED Mr Harry was found to have a normal WBC with elevated neutrophils , preserved kidney function, lactic acid 1.3. CXR showed bilateral patchy infiltrates, bilateral pleural effusions. CTA chest negative for PE. Pt was started on vancomycin, zosyn, and given 2 L bolus. BP's were as low as SBP 90' s but responded well to fluids. pO2 49.1 on ABG, pt required 2 L initially and titrated to 5 L while in ED, oxygen sat's in mid 90's. - Allergies/Adverse Reactions Allergies Allergy/AdvReac Type Severity Reaction Status Date / Time No Known Allergies Allergy Verified 02/24/19 09:21 - Home Medications Medication Instructions Recorded Confirmed Type Adalimumab [Humira Pen] 40 mg SC Q14D 11/10/13 03/06/19 History Atorvastatin Calcium [Lipitor] 10 mg PO HS 11/10/13 03/06/19 History Dexlansoprazole [Dexilant] 60 mg PO QAM 11/10/13 03/06/19 History Tolterodine Tartrate [Detrol LA] 4 mg PO QAM 11/10/13 03/06/19 History Aspirin Chewable [Aspirin Chewable 1 tab PO HS 01/18/17 03/06/19 History Tablet] Tamsulosin HCl [Flomax] 0.4 mg PO 1200 03/04/18 03/06/19 History Rizatriptan Benzoate [Rizatriptan] 10 mg PO ASDIR PRN 02/24/19 03/06/19 History - History PMHx: Crohns, HLD, GERD, Urinary Retention PSHx: pain stimulator (03/2018) shoulder surgery x3 hernia repair cholecystecomy lumbar spinal fusion 3 days ago. FHx: non-contributory Social: denies smoking, alcohol. Lives with . - Review of Systems General: reports: fever/chills, weight/appetite/sleep changes, fatigue ENT: denies: nasal congestion, rhinorrhea Respiratory: reports: cough, congestion, shortness of breath Cardiovascular: denies: chest pain, palpitation, edema Gastrointestinal: reports: constipation. denies: nausea, vomiting, diarrhea Genitourinary: denies: incontinence, dysuria Skin: denies: rashes, lesions Musculoskeletal: reports: pain. denies: swelling Neurological: denies: numbness, syncope - Vital signs BP: 90/68 HR: 98 RR: 18 Tmax: 99.2 Pox: 95% on 2L Wt: 81.7 kg - Physical Exam Constitutional: NAD, awake, alert and oriented HEENT: PERRLA, EOMI Neck: FROM, trachea midline Heart: RRR, normal S1/S2, no edema Lungs: CTAB, good air movement, no rales/rhonchi Abdomen: non-tender, bowel sounds present -Abdomen: mildly distended Neurological: no focal deficit, CN II-XII intact Skin: no rash/lesions Psychiatric: normal mood and affect -Psychiatric: Pt confused FMR H&P: Results - Labs Result Diagrams: 03/06/19 09:15 03/06/19 09:15 Lab results: WBC 6.3 thou/uL (4.8-10.8) 03/06/19 09:15 Hgb 12.8 g/dL (14.0-18.0) L 03/06/19 09:15 Hct 37.6 % (42.0-52.0) L 03/06/19 09:15 MCV 87.3 fL (78.0-98.0) 03/06/19 09:15 Plt Count 193 thou/uL (130-400) 03/06/19 09:15 Neutrophils % 75.1 % (42.0-75.0) H 03/06/19 09:15 Sodium 133 mmol/L (136-145) L 03/06/19 09:15 Potassium 4.5 mmol/L (3.5-5.1) 03/06/19 09:15 Chloride 100 mmol/L (98-107) 03/06/19 09:15 Carbon Dioxide 26 mmol/L (23-31) 03/06/19 09:15 BUN 16 mg/dL (8.4-25.7) 03/06/19 09:15 Creatinine 1.01 mg/dL (0.7-1.3) 03/06/19 09:15 Glucose 103 mg/dL (83-110) 03/06/19 09:15 Lactic Acid 1.3 mmol/L (0.5-2.2) 03/06/19 09:15 Calcium 8.6 mg/dL (7.8-10.44) 03/06/19 09:15 Total Bilirubin 0.8 mg/dL (0.2-1.2) 03/06/19 09:15 AST 34 U/L (5-34) 03/06/19 09:15 ALT 22 U/L (8-55) 03/06/19 09:15 Alkaline Phosphatase 60 U/L (40-110) 03/06/19 09:15 Serum Total Protein 6.0 g/dL (5.8-8.1) 03/06/19 09:15 Albumin 3.2 g/dL (3.4-4.8) L 03/06/19 09:15 Urine Ketones 20 mg/dL (Negative) A 03/06/19 09:30 Urine Blood Negative (Negative) 03/06/19 09:30 Urine Nitrite Negative (Negative) 03/06/19 09:30 Ur Leukocyte Esterase Negative Edna/uL (Negative) 03/06/19 09:30 Urine RBC 4-6 HPF (0-3) A 03/06/19 09:30 Urine WBC 11-20 HPF (0-3) A 03/06/19 09:30 Ur Squamous Epith Cells 4-6 HPF (0-3) A 03/06/19 09:30 Urine Bacteria None Seen HPF (None Seen) 03/06/19 09:30 - Radiology Interpretation CT scan - chest Status: report reviewed by me (No PE, patchy alveolar consolidations) Chest x-ray Status: report reviewed by me (Bilateral pulmonary consolidations) FMR H&P: A/P - Problem List (1) Bilateral pneumonia Current Visit: Yes Status: Acute Code(s): J18.9 - PNEUMONIA, UNSPECIFIED ORGANISM (2) Community acquired bilateral lower lobe pneumonia Current Visit: Yes Status: Acute Code(s): J18.9 - PNEUMONIA, UNSPECIFIED ORGANISM (3) Crohn disease Current Visit: Yes Status: Acute Code(s): K50.90 - CROHN'S DISEASE, UNSPECIFIED, WITHOUT COMPLICATIONS (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 # Bilateral Community Acquired Pneumonia # Sepsis - tachycardia, febrile Tmax 104, tachypneic # Acute Hypoxic Respiratory Failure Pt presents s/p laminectomy day 3. Likely atalectasis playing a role. CXR bilateral infiltrates. CTA for PE negative. WBC WNL, neutrophils elevated. Pt is immunocompromised, taking humira, will cover for pseudomonas, MRSA. Lactic 1.3. ABG on admission revealed an pO2 49.1, pt requried 5 L NC in EDto remain in mid 90's. Admitted to IMCU, careful monitoring respiratory status, pt is full code. Family states pt is confused. CURB-65: 3. - procal, legionella, strep ab, mycoplasma pending - continue vanc, zosyn - vanc trough on 03/08 @ 1000 - spirometer # S/P Laminectomy - Dr. Randhawa evaluated pt in ED, appreciate rec's. - Paicines for pain # Crohn's - Continue home meds - Dr. Navarro consulted for update per family request # HLD - continue home meds # GERD - continue home meds # Constipation - Senna scheduled # Bladder Dysfunction - continue home meds Fluids: LR 125 mls/hr Diet: HH VTE: Lovenox Dispo: pt will require > 48 hr stay FMR H&P: Upper Level - Pertinent history Pt is a 73yo M with PMH of chrons on chronic immunosuppresive therapy who is 3 days post op from L5-S1 laminectomy with Dr. Randhawa presenting for two day hx of fever up to 104 at home. He is s/p Rocephin x1 dose yesterday at home. Today had generalized weakness, confusion, and SOB. Upon arrival 88% on RA. CXR impressive b/l PNA. ED gave 2L NS, Vanc and Zosyn. His BP at his time is 123/75, 97% on 5L. PE findings of increased work of breathing and mildly decreased breath sounds, no crackles evident. CBC with WBC 6.3 with left shift 75% neutrophils. ABG pH 7.4, pco2 37.9, po2 49.1, bicarb 22.9. CMP with mild hyponatremia of 133 but otherwise within normal limits. Will admit to IMCU for high flow NC and continue Vanc and Zosyn for broad coverage with immunocompromised state. s/p 2L NS, will start LR at 125. Will get urinary antigen for strep pneumo and legionella and IGM mycoplasma ab. Will get procal to trend. For post op pain will give Paicines and prn toradol. Will continue home meds for chrons and consult GI for continuity of care. Will hold home BP meds for now with recent hypotension. Will follow closely. Discussed Code status with pt who is Aox4 who requests full code. For full H&P details, see above financial intern note. - Plan Date/Time: 03/06/19 0892 I, [], have evaluated this patient and agree with findings/plan as outlined by financial intern resident. Pertinent changes/additions are listed here. Addendum - Attending - Attending Attestation Date/Time: 03/06/19 3809 I personally evaluated the patient and discussed the management with Dr. Alvarado /Matthias I agree with the History, Examination, Assessment and Plan documented above with any addition or exceptions noted below. Please see my dictation for additional details. Document # [id number]
[2019-03-06] MEDS ORDERED: Iopamidol-370 76% 500 ML 1 ML ONE (11:41)
--- NOTE | 2019-03-06 11:44 | PRG ---
DATE OF SERVICE: 03/06/2019 Dr. Harry is postoperative day #3 from an uneventful L3 through L5 laminectomy, partial facetectomy, foraminotomy. He has had improvement in his low back and leg pain. He is neurologically intact. Unfortunately, he has developed increased cough and fever initially. On postop day #1, I was concerned about atelectasis and well responded to an antipyretic. His symptoms then returned, and he became hypoxic. He is saturating around 85% on room air. His white blood cell count is normal and his hemoglobin is normal; however, he does have a mild neutrophil shift. On CT an of the chest, I do not see a pulmonary embolism; however, he does have infiltrate and bilateral pleural effusions. Chest x-ray makes one suspicious of pneumonia. He has been initiated on Zosyn. His urine appears to be concentrated and I suspect dehydration as well. He is being admitted. Job ID: [id number]
--- NOTE | 2019-03-06 11:47 | ULT ---
EXAM: Bilateral lower extremity venous ultrasound HISTORY: Bilateral lower extremity pain and edema; recent back surgery COMPARISON: None TECHNIQUE: Multiplanar grayscale and color Doppler images were obtained in a bilateral lower extremit y venous ultrasound. Spectral analysis of the Doppler waveforms were performed. FINDINGS: The bilateral common femoral vein, profunda femoral veins, superficial femoral veins, and p opliteal veins are normal in appearance without visible thrombus. These vessels demonstrate normal compression, flow, and augmentation. The bilateral posterior tibial veins and greater saphenous veins are patent without evidence of throm bus. IMPRESSION: No evidence of DVT.
[2019-03-06 11:52] LABS: Actual Bicarbonate (HCO3a) 22.9 mEq/L (22-28); Analyzer IN Cardio ER; Base Excess (BEa) -1.6 mEq/L (-2.0 to +3.0); CO2 Tension 37.9 mmHg (35.0-45.0); Calcium, Ionized 1.09 mmol/L (1.12-1.30); Carboxyhemoglobin (COHb) 0.6 gm% (0.0-3.0); Hemoglobin (Hb) 11.7 g/dL (14.0-18.0); Potassium - ABG Lab 4.22 mmol/L (3.70-5.30)
[2019-03-06 11:58] LABS: ALV-art Gradient 145.945 (0-20); O2 Tension (PaO2) 49.1 mmHg (> 70.0); Puncture Site L.R.
[2019-03-06 13:19] VITALS: BMI 27.3
[2019-03-06] MEDS ORDERED: Acetaminophen 325 MG TAB PO PRN ×2 (13:22→14:19)
[2019-03-06] MEDS ORDERED: Sodium Chloride 0.9% 1,000 ML IV SCH (13:22)
[2019-03-06] MEDS ORDERED: Ondansetron ODT 4 MG TAB SL PRN (13:22)
[2019-03-06] MEDS ORDERED: Ondansetron PF 4 MG/2 ML Vial IVP PRN (13:22)
[2019-03-06] MEDS ORDERED: Ketorolac Tromethamine 30 MG/ML VIAL IVP PRN (14:19)
[2019-03-06] MEDS ORDERED: Senokot S 8.6-50 MG TAB PO PRN (14:19)
[2019-03-06] MEDS ORDERED: Ondansetron ODT 4 MG TAB PO PRN (14:19)
[2019-03-06] MEDS ORDERED: SUMAtriptan Succinate 50 MG TAB PO PRN (15:01)
[2019-03-06 15:03] LABS: Legionella Urinary Ag Negative (Negative); Strep pneumo Urine Ag NEGATIVE (NEGATIVE)
[2019-03-06] MEDS: Morphine 2 MG/ML SYRINGE SLOW IVP PRN ×2 (15:04→20:23)
[2019-03-06] MEDS: Lactated Ringer's 1,000 ML IV SCH ×2 (15:05→22:00)
[2019-03-06] MEDS ORDERED: Piperacillin/Tazobactam 4.5 GM in Sodium Chloride 0.9% 100 ML IVPB SCH (16:00)
--- NOTE | 2019-03-06 16:32 | HP ---
TIME OF EXAMINATION: 1330 hours. CHIEF COMPLAINT: Shortness of breath, fever. HISTORY OF PRESENT ILLNESS: I reviewed all documentation performed by Dr. Alvarado and Dr. Rizzo and agree with their history and physical unless otherwise stated in the following attestation. In summary, Mr. Harry is a pleasant 73-year-old male with a known past medical history of Crohn disease requiring chronic Humira use for control of symptoms. He is also postop day 3 from lumbar laminectomy to relieve low back pain with radiation down his legs. He presents as an admission from the ER after being found to have progressively worsening shortness of breath over the past 3 days. Two days ago, the patient had a low-grade fever of approximately 100 degrees Fahrenheit. However, over the last 24 hours, he has had a fever as high as 104 degrees Fahrenheit. This patient's daughter became concerned about possible underlying pneumonia and brought him to the emergency room. Upon arrival by EMS, he was found to have oxygen saturations in the low to mid 80s, which quickly improved with supplemental oxygen. The patient's daughter stated that PCP gave him a shot of IM Rocephin yesterday for concern for possible postoperative pneumonia. The patient reports mild back pain that has improved with morphine. Otherwise, the patient has no complaints. ER COURSE: In the ER, the patient was seen and evaluated. He received vancomycin 1 g IV, Zosyn 4.5 g IV, and 2 L normal saline bolus. He was initially tachycardiac with pulse documented up to 101. He has been afebrile the entire time in ER. The patient came in, requiring 2 L nasal cannula, but this was gradually increased up to 4 L nasal cannula. He had routine lab work drawn. Blood cultures obtained and had a chest x-ray, venous Dopplers, and CT angio with results listed below. PAST MEDICAL HISTORY: Please see the healthcare administration intern note. PAST SURGICAL HISTORY: Please see the healthcare administration intern note. SOCIAL HISTORY: Please see the healthcare administration intern note. FAMILY HISTORY: Please see the healthcare administration intern note. ALLERGIES: PLEASE SEE THE ELEVATOR CONSTRUCTOR SUPERVISOR NOTE. MEDICATIONS: Please see the healthcare administration intern note. FOCUSED PHYSICAL EXAMINATION: VITAL SIGNS: At the time of my examination, most recent documented blood pressure was 122/78, pulse 91, respiratory rate 16, the patient was saturating approximately 96% on high-flow nasal cannula at 40 L/min, 60% FiO2. GENERAL: The patient is resting comfortably in bed. Alert and oriented x4. Appropriately responsive. Family present at bedside at this time. CARDIAC: Normal rate, regular rhythm. No murmurs, rubs, or gallops. PULMONARY: Clear to auscultation bilaterally. Good air movement throughout. Normal effort. PERTINENT LABORATORY FINDINGS: CBC: WBC 6.3, neutrophils 75%, hemoglobin 12.8, hematocrit 37.6, platelets 195. Sodium 130, albumin 3.2, creatinine 1.01, GFR 72. UA is remarkable for 4 to 6 squamous cell, 11 to 20 white blood cells. Arterial blood gas, pH 7.4, pCO2 is 37.9, pO2 is 49.1, bicarb 22.9. Record showed EKG was performed in the ER, but was unavailable in the patient's chart before and it now had been scanned into the patient's ER record at time of examination. IMAGING: Chest x-ray reviewed by me and diffuse bilateral infiltrates. CT chest, abdomen reviewed by me. No pulmonary embolus. Diffuse pulmonary infiltrates concerning for pneumonia. Venogram report reviewed by me, no evidence of DVT. ASSESSMENT AND PLAN: Mr. Harry is a pleasant 73-year-old gentleman, who is postop day 3 from laminectomy. He presents with progressive worsening shortness of breath and worsening fever. He is chronically immunosuppressed with Humira to treat his Crohn disease. Concerned for postoperative pneumonia at this time. 1. Sepsis (resolved) secondary to community-acquired pneumonia. The patient responded well to IV fluid bolus and vital signs stabilized. We will continue vancomycin and Zosyn at this time. Procalcitonin will be added to the labs drawn in the ER and will continue to trend. Blood cultures have been drawn at this time. Continue lactated Ringer at 125 an hour. 2. Acute hypoxic respiratory failure secondary to #1. The patient was placed in the IMCU due to potential for decompensation. Currently, resting comfortably on high-flow nasal cannula. We will attempt to titrate down. Continue antibiotics as previously prescribed. 3. Crohn disease. The patient is chronically immunosuppressed due to Humira usage. Vancomycin and Zosyn for antibiotic coverage. We will also add urine streptococcal and legionella antigen. 4. Chronic low back pain, status post laminectomy. Neurosurgery consulted in the ER. We will await further recommendations. Pain management with IV morphine, p.o. [employer], and Toradol ordered. 5. See healthcare administration intern note for management of chronic medical conditions. 6. Disposition and estimated length of stay, inpatient IMCU, greater than 2 midnights. I discussed with the patient's daughter and the patient of potential need for endotracheal intubation should the patient continue to decompensate. They expressed understanding of the risks involved, but would like to proceed with endotracheal intubation should that become necessary. I do not feel at this time the patient will require this, but we will keep him in the IMCU for close monitoring in the event that his respiratory failure worsens. Pulmonary Critical Care will be consulted in the morning. Job ID: [id number]
[2019-03-06] MEDS: Piperacillin/Tazobactam 4.5 GM in Sodium Chloride 0.9% 100 ML IVPB SCH ×2 (17:34→22:00)
[2019-03-06] MEDS: HYDROcodone/Acetaminophen 5/325 mg Tablet PO PRN (17:34)
[2019-03-06] MEDS: Aspirin Chewable 81 MG TAB PO SCH (20:22)
[2019-03-06] MEDS: Atorvastatin Calcium 10 MG TAB PO SCH (20:22)
[2019-03-06] MEDS: Senokot S 8.6-50 MG TAB PO SCH (20:23)
[2019-03-07] MEDS: HYDROcodone/Acetaminophen 5/325 mg Tablet PO PRN ×4 (02:11→19:26)
[2019-03-07] MEDS: Piperacillin/Tazobactam 4.5 GM in Sodium Chloride 0.9% 100 ML IVPB SCH ×4 (03:42→21:34)
[2019-03-07 05:17] LABS: Anion Gap 9 mmol/L (10-20); BUN (Urea Nitrogen) 8 mg/dL (8.4-25.7); Calc. Creatinine Clearance 108 mL/min (70-130); Calcium 7.7 mg/dL (7.8-10.44); Carbon Dioxide 25 mmol/L (23-31); Chloride 106 mmol/L (98-107); Estimated GFR-MDRD Greater than 90; Glucose 94 mg/dL (83-110); Potassium 4.1 mmol/L (3.5-5.1); Sodium 136 mmol/L (136-145)
[2019-03-07 05:22] LABS: Band 4 % (5-11); Eosinophils 2 % (0-10); Hemoglobin 11.3 g/dL (14.0-18.0); Lymphocytes 27 % (21-51); MDiff Complete? YES; Mean Corpuscular HGB CONC 34.5 g/dL (32.0-36.0); Mean Corpuscular Hemoglobin 30.1 pg (27.0-31.0); Mean Platelet Volume 6.2 fL (7.4-10.4); Monocytes 7 % (0-10); Neutrophil 60 % (42-75); Platelet Count 151 thou/uL (130-400); Platelet Morphology Comment Appears Adequate; RBC Distribution Width 13.1 % (11.5-14.5); Red Blood Cell (RBC) Count 3.74 mill/uL (4.70-6.10)
[2019-03-07] MEDS: Morphine 2 MG/ML SYRINGE SLOW IVP PRN ×4 (05:22→23:17)
--- NOTE | 2019-03-07 05:30 | PDOC.FM ---
- Subjective Subjective: Pt is doing well today. He denies fever, chills, AMS. He is resting comfortably. He has a CAUSEY which he believes is from the high flow oxygen. - Objective Vital Signs & Weight: Vital Signs (12 hours) Temp Pulse Ox 03/07/19 04:30 96 03/07/19 04:00 98.0 F 03/07/19 00:00 98.8 F 03/06/19 20:00 98 03/06/19 19:30 98.5 F 03/06/19 18:17 97.6 F Weight Weight 89.868 kg Most Recent Monitor Data Heart Rate from ECG 98 NIBP 136/84 NIBP BP-Mean 101 Respiration from ECG 13 SpO2 97 I&O: 03/05/19 03/06/19 03/07/19 06:59 06:59 06:59 Intake Total 2350 Output Total 1400 Balance 950 Result Diagrams: 03/07/19 04:07 03/07/19 04:07 Phys Exam - Physical Examination Constitutional: NAD HEENT: PERRLA, moist MMs Respiratory: no wheezing, no rales, clear to auscultation bilateral Cardiovascular: RRR, no significant murmur Gastrointestinal: soft, non-tender, no distention Musculoskeletal: no edema, pulses present Psychiatric: normal affect, A&O x 3 Dx/Plan (1) Bilateral pneumonia Code(s): J18.9 - PNEUMONIA, UNSPECIFIED ORGANISM Status: Acute (2) Community acquired bilateral lower lobe pneumonia Code(s): J18.9 - PNEUMONIA, UNSPECIFIED ORGANISM Status: Acute (3) Crohn disease Code(s): K50.90 - CROHN'S DISEASE, UNSPECIFIED, WITHOUT COMPLICATIONS Status: Acute (4) Immunosuppression due to drug therapy Code(s): Z79.899 - OTHER MINUTE CLERK (CURRENT) DRUG THERAPY Status: Acute (5) Spinal stenosis Code(s): M48.00 - SPINAL STENOSIS, SITE UNSPECIFIED Status: Acute (6) Hyperlipemia Code(s): E78.5 - HYPERLIPIDEMIA, UNSPECIFIED Status: Acute - Plan Plan: Pt is a 73 yo male with PMH significant for Crohn's on Humira, spinal stenosis w / L3-L4 laminectomy 03/03/19 who presents for bilateral pneumonia. # Bilateral Community Acquired Pneumonia # Sepsis - tachycardia, febrile Tmax 104, tachypneic # Acute Hypoxic Respiratory Failure Pt presents s/p laminectomy day 3. Likely atalectasis playing a role. CXR bilateral infiltrates. CTA for PE negative. WBC WNL, neutrophils elevated. Pt is immunocompromised, taking humira, will cover for pseudomonas, MRSA. Lactic 1.3. ABG on admission revealed an pO2 49.1, pt requried 5 L NC in EDto remain in mid 90's. Admitted to IMCU, careful monitoring respiratory status, pt is full code. Family states pt is confused. CURB-65: 3. Day 2 pt has no WBC elevation, no bands. Procal negative this morning. - influenza pending - procal x 2, legionella, strep ab are negative. Histo, mycoplasma pending - continue vanc, zosyn --> switch to doxy, cipro when appropriate - vanc trough on 03/08 @ 1000 - spirometer # S/P Laminectomy - Dr. Randhawa evaluated pt in ED, appreciate rec's. - [place] for pain # Crohn's - Continue home meds - GI unofficially consulted for update per family request. Appreciate GI for following up with family while admitted. # HLD - continue home meds # GERD - continue home meds # Constipation - Senna scheduled # Bladder Dysfunction - continue home meds # Normocytic Anemia - Hgb 11.3 on 03/07/19 - Iron studies pending Fluids: LR 125 mls/hr Diet: HH VTE: Lovenox Dispo: pt will require > 48 hr stay Addendum - Attending - Attending Attestation Date/Time: 03/07/19 6734 I personally evaluated the patient and discussed the management with Dr. Alvarado I agree with the History, Examination, Assessment and Plan documented above with any addition or exceptions noted below.
--- NOTE | 2019-03-07 08:35 | PRG ---
DATE OF SERVICE: 03/07/2019 SUBJECTIVE: The patient is a 73-year-old male who is postoperative day #4, status post L3-L5 laminectomy with Dr. Randhawa. The patient had previously been discharged to home, but returned for fever up to 104 and shortness of breath and hypoxia. The patient was evaluated with labs, chest x-ray and CTA of the chest, which is notable for development of bilateral lobar pneumonia, left greater than right. The patient reports today he is feeling much better after treatment with fluids and he is also getting IV Zofran. He has been afebrile overnight. OBJECTIVE: GENERAL: On exam this morning, patient is awake, alert, in no acute distress. EXTREMITIES: He has free active range of all extremities. No focal motor weakness. RESPIRATORY: He does not appear to be significantly short of breath at this time. With regard to his lumbar surgery, he appears to be healing well. We will defer ongoing medical issues and treatment of pneumonia to the medical team. We will continue to follow along. Job ID: [id number]
--- NOTE | 2019-03-07 09:46 | PRG ---
DATE OF SERVICE: 03/07/2019 The patient visited. He is feeling much better as he reports. He still having some issues with saturations. There are no neurological issues and he is doing quite well from a lumbar issue. Discussed with the patient and daughter at bedside. Job ID: [id number]
[2019-03-07] MEDS: Enoxaparin Sodium 40 MG/0.4 ML SYRINGE SC SCH (09:49)
[2019-03-07] MEDS: Lactated Ringer's 1,000 ML IV SCH ×3 (09:49→21:44)
[2019-03-07] MEDS: Trospium 20 MG TAB PO SCH (09:50)
[2019-03-07] MEDS: Senokot S 8.6-50 MG TAB PO SCH ×2 (09:50→19:25)
[2019-03-07] MEDS: Vancomycin HCl 1.25 GM in Sodium Chloride 0.9% 250 ML 250 ML IVPB SCH ×2 (09:50→21:34)
[2019-03-07] MEDS ORDERED: Vancomycin 1.5 GRAM/300 ML BAG 1.5 GM in Premix Bag 1 BAG IVPB SCH (10:00)
[2019-03-07] MEDS: Tamsulosin HCl 0.4 MG CAP PO SCH (11:16)
[2019-03-07 13:44] LABS: Iron 20 ug/dL (65-175); Iron Binding Capacity, Total 183 mcg/dL (261-462)
[2019-03-07] MEDS ORDERED: valACYclovir 500 MG TAB PO SCH (13:45)
[2019-03-07 13:55] LABS: Reticulocyte Count 3.3 % (0.5-1.5)
[2019-03-07] MEDS ORDERED: FLU VACC TS2019-20(65YR UP)/PF 180 MCG/0.5 ML SYRINGE IM ONE (14:45)
[2019-03-07 14:52] LABS: Ferritin 205.94 ng/mL (22-322)
[2019-03-07 14:53] LABS: Vitamin B12 Greater than 2000 pg/mL (211-911)
[2019-03-07] MEDS: valACYclovir 500 MG TAB PO SCH (19:24)
[2019-03-07] MEDS: Melatonin 3 MG TAB PO PRN (19:25)
[2019-03-07] MEDS: Aspirin Chewable 81 MG TAB PO SCH (19:25)
[2019-03-07] MEDS: Atorvastatin Calcium 10 MG TAB PO SCH (19:25)
[2019-03-08] MEDS: HYDROcodone/Acetaminophen 5/325 mg Tablet PO PRN ×3 (02:02→23:14)
[2019-03-08] MEDS: Piperacillin/Tazobactam 4.5 GM in Sodium Chloride 0.9% 100 ML IVPB SCH ×2 (03:35→09:57)
[2019-03-08] MEDS: Morphine 2 MG/ML SYRINGE SLOW IVP PRN ×5 (03:39→19:38)
--- NOTE | 2019-03-08 05:57 | PDOC.FM ---
- Subjective Subjective: Pt is doing well today. He slept well overnight. He has no complaints. He denies fever, chills. - Objective Vital Signs & Weight: Vital Signs (12 hours) Temp Pulse Ox 03/08/19 04:00 98.2 F 03/08/19 01:38 94 L 03/08/19 00:00 99.3 F 03/07/19 20:00 100 03/07/19 19:56 99.9 F H 03/07/19 19:15 95 Weight Weight 89.84 kg Most Recent Monitor Data Heart Rate from ECG 73 NIBP 108/65 NIBP BP-Mean 79 Respiration from ECG 16 SpO2 100 I&O: 03/06/19 03/07/19 03/08/19 06:59 06:59 06:59 Intake Total 4100 2980 Output Total 1675 1200 Balance 2425 1780 Result Diagrams: 03/08/19 08:06 03/08/19 08:06 Phys Exam - Physical Examination Constitutional: NAD Respiratory: no wheezing, clear to auscultation bilateral Cardiovascular: RRR, no significant murmur Gastrointestinal: soft, non-tender, no distention Musculoskeletal: no edema, pulses present Psychiatric: A&O x 3 Dx/Plan (1) Bilateral pneumonia Code(s): J18.9 - PNEUMONIA, UNSPECIFIED ORGANISM Status: Acute (2) Community acquired bilateral lower lobe pneumonia Code(s): J18.9 - PNEUMONIA, UNSPECIFIED ORGANISM Status: Acute (3) Crohn disease Code(s): K50.90 - CROHN'S DISEASE, UNSPECIFIED, WITHOUT COMPLICATIONS Status: Acute (4) Immunosuppression due to drug therapy Code(s): Z79.899 - OTHER ASSISTED (CURRENT) DRUG THERAPY Status: Acute (5) Spinal stenosis Code(s): M48.00 - SPINAL STENOSIS, SITE UNSPECIFIED Status: Acute (6) Hyperlipemia Code(s): E78.5 - HYPERLIPIDEMIA, UNSPECIFIED Status: Acute - Plan Plan: Pt is a 73 yo male with PMH significant for Crohn's on Humira, spinal stenosis w / L3-L4 laminectomy 03/03/19 who presents for bilateral pneumonia. # Bilateral Community Acquired Pneumonia # Sepsis - tachycardia, febrile Tmax 104, tachypneic # Acute Hypoxic Respiratory Failure Pt presents s/p laminectomy day 3. Likely atalectasis playing a role. CXR bilateral infiltrates. CTA for PE negative. WBC WNL, neutrophils elevated. Pt is immunocompromised, taking humira, will cover for pseudomonas, MRSA. Lactic 1.3. ABG on admission revealed an pO2 49.1, pt requried 5 L NC in EDto remain in mid 90's. Admitted to IMCU, careful monitoring respiratory status, pt is full code. Family states pt is confused. CURB-65: 3. Day 2 pt has no WBC elevation, no bands. Procal negative this morning. Day 3 continue current care. Pt slept well with melatonin. Will attempt weaning oxygen again today. Pt's mentation was aaox3 this morning but became delirious yesterday likely secondary to hypoxia while weaning o2. - influenza pending - procal x 2, legionella, strep ab are negative. Histo, mycoplasma pending - continue vanc, zosyn --> switch to doxy, cipro when appropriate - vanc trough on 03/08 @ 1000 pending - spirometer # S/P Laminectomy - Dr. Randhawa evaluated pt in ED, appreciate rec's. - [place] for pain # Crohn's - Continue home meds - GI unofficially consulted for update per family request. Appreciate GI for following up with family while admitted. # HLD - continue home meds # GERD - continue home meds # Constipation - Senna scheduled # Bladder Dysfunction - continue home meds # Normocytic Anemia, Anemia of Chronic Disease - Hgb 11.3 on 03/07/19 - Iron 20, TIBC 183, Ferritin 205, B12/Folate WNL, Retic 3.3 Fluids: LR 125 mls/hr Diet: HH VTE: Lovenox Dispo: pt will require > 48 hr stay Addendum - Attending - Attending Attestation Date/Time: 03/08/19 [id number] I personally evaluated the patient and discussed the management with Dr. Alvarado I agree with the History, Examination, Assessment and Plan documented above with any addition or exceptions noted below. Concern with immunosupressed status rec respiratory viral panel TB deep fungal nocardia screen. Appreciate recommendations from Pulmonary and may need ID consults as well. Patient remains oxygen dependant with acute transient delirium noted yesterday with attempt wean oxygen.
[2019-03-08] MEDS: valACYclovir 500 MG TAB PO SCH (08:09)
[2019-03-08] MEDS: Trospium 20 MG TAB PO SCH (08:09)
[2019-03-08] MEDS: Senokot S 8.6-50 MG TAB PO SCH ×2 (08:09→19:38)
[2019-03-08] MEDS: Enoxaparin Sodium 40 MG/0.4 ML SYRINGE SC SCH (08:10)
[2019-03-08] MEDS: Vancomycin HCl 1.25 GM in Sodium Chloride 0.9% 250 ML 250 ML IVPB SCH (08:11)
[2019-03-08] MEDS: Lactated Ringer's 1,000 ML IV SCH (08:13)
[2019-03-08 08:25] LABS: Vancomycin, Trough 11.8 ug/mL
[2019-03-08 08:38] LABS: Band 9 % (5-11); Eosinophils 4 % (0-10); Hemoglobin 10.7 g/dL (14.0-18.0); Lymphocytes 26 % (21-51); MDiff Complete? YES; Mean Corpuscular Hemoglobin 30.1 pg (27.0-31.0); Mean Corpuscular Volume 88.4 fL (78.0-98.0); Mean Platelet Volume 5.9 fL (7.4-10.4); Monocytes 7 % (0-10); Neutrophil 54 % (42-75); Platelet Count 155 thou/uL (130-400); RBC Distribution Width 13.1 % (11.5-14.5); Red Blood Cell (RBC) Count 3.57 mill/uL (4.70-6.10); White Blood Cell (WBC) Count 4.2 thou/uL (4.8-10.8)
[2019-03-08 08:42] LABS: Anion Gap 11 mmol/L (10-20); BUN (Urea Nitrogen) 6 mg/dL (8.4-25.7); Calc. Creatinine Clearance 113 mL/min (70-130); Calcium 7.9 mg/dL (7.8-10.44); Carbon Dioxide 24 mmol/L (23-31); Chloride 106 mmol/L (98-107); Estimated GFR-MDRD Greater than 90; Glucose 83 mg/dL (83-110); Potassium 3.9 mmol/L (3.5-5.1); Sodium 137 mmol/L (136-145)
--- NOTE | 2019-03-08 09:23 | PRG ---
DATE OF SERVICE: 03/08/2019 SUBJECTIVE: The patient continues to improve with regard to his pneumonia. He reports he is feeling much better. He has been afebrile overnight.. He is still requiring quite a bit of supplemental oxygen. His flu screen, blood cultures, and urine cultures have all been negative thus far. OBJECTIVE: GENERAL: On exam this morning, the patient is awake and alert, in no acute distress. EXTREMITIES: He has free active range of motion of all extremities. No focal motor weakness. He is having no incisional issues. ASSESSMENT AND PLAN: With regard to his lumbar surgery, it is healing well. He seems to be improving, and we will defer ongoing medical treatment of his pneumonia to the medical team. We will continue to follow along. Job ID: [id number] [facility]
[2019-03-08] MEDS ORDERED: Furosemide 40 MG/4 ML VIAL SLOW IVP SCH (14:15)
[2019-03-08] MEDS: Tamsulosin HCl 0.4 MG CAP PO SCH (14:36)
[2019-03-08] MEDS ORDERED: Potassium Chloride 20 MEQ TAB PO SCH (15:00)
--- NOTE | 2019-03-08 15:50 | CON ---
DATE OF CONSULTATION: 03/08/2019 SERVICE: Pulmonary medicine. REASON FOR CONSULTATION: Respiratory failure. HISTORY OF PRESENT ILLNESS: The patient is a 73-year-old male with past medical history significant for a recent laminectomy of the lumbar spine. The procedure was uncomplicated. Postop day #1, he ended up having a fever of 104. He spiked a fever on that following Saturday as well, but it did not go as high. He has taken some p.r.n. medications for these. Because of the early onset of the fever, it was suspected that it could be secondary to atelectasis. Ultimately, on , he did not have any additional fevers, but on Saturday, he had severe weakness and was brought to the emergency department. He had some very severe difficulty breathing and it was discovered to be hypoxemic. He was placed on high-flow nasal cannula and tucked in the IMCU. He was given some IV fluids and broad-spectrum antibiotics. He failed to liberate from high-flow nasal cannula. The patient has a cough, but has not been generating any sputum. He denies any current fevers or chills. Otherwise, he is returning to his usual state of health and has no specific complaints currently. PAST MEDICAL HISTORY: 1. Crohn disease. 2. Dyslipidemia. 3. Gastroesophageal reflux disease. 4. Urinary retention. PAST SURGICAL HISTORY: 1. Pain stimulator. 2. Shoulder surgery x3. 3. Herniorrhaphy. 4. Cholecystectomy. 5. Spinal fusion of the lumbar region. FAMILY HISTORY: Noncontributory. SOCIAL HISTORY: Negative for alcohol, tobacco, or illicit drug use. He has no exposure to chemicals, dust, asbestos, or tuberculosis. ALLERGIES: NO KNOWN DRUG ALLERGIES. MEDICATIONS: List of his inpatient medications was reviewed. Multiple updates were made at this time. REVIEW OF SYSTEMS: General; head, ears, eyes, nose, throat; cardiovascular; respiratory; GI; ; musculoskeletal; neurologic; and skin are negative except as mentioned in the HPI. PHYSICAL EXAMINATION: VITAL SIGNS: Afebrile currently. His T-maximum was 100.8. Pulse 89, blood pressure 153/97, respirations 20, and saturation 99%, currently on BiPAP 12/7 with a FiO2 of 27%. GENERAL: The patient is awake and alert, in no apparent distress. LUNGS: Decent air entry. There is no prolonged expiratory phase. Dependent crackles are noted. There is decreased air entry at the bibasilar regions. HEART: Normal rate. Regular. ABDOMEN: Soft. Nontender. Nondistended. Bowel sounds are positive. MUSCULOSKELETAL: No cyanosis or clubbing. There is 2+ pitting in the bilateral lower extremities. NEUROLOGIC: Grossly nonfocal. LABORATORY DATA: WBC 4.2, hemoglobin 10.7, and platelets 155,000. PH 7.4, pCO2 38, PO2 50. Basic metabolic profile is unremarkable. His BNP is elevated at 112. B12 is above the assay limit of 2000, folate falls within normal limits. Procalcitonin is 0.05, extraordinarily low. Iron and TIBC are low. Ferritin level falls within the normal limits. Basic metabolic profile is unremarkable. Liver function studies are unremarkable. Urinalysis is unremarkable. Vancomycin trough 11.8. Strep and Legionella urine antigens are unremarkable. Blood cultures x2, urine culture, and influenza A and B are completely unremarkable. IMAGIN. Ultrasound of the bilateral lower extremities demonstrates no evidence of DVT. 2. CTA of the chest demonstrates no evidence of a pulmonary emboli. There are ground-glass opacifications and interstitial fullness throughout bilateral lung jones. This seems to be in a perihilar distribution. There is a layering component to these ground-glass changes. Bilateral pleural effusions are noted. There is no reflux of contrast into the inferior vena cava. The right ventricle , left ventricle, and left atrium seem to be quite generous in size. The right atrium appears to be small. ASSESSMENT: 1. Acute hypoxic respiratory failure. 2. Abnormal CT characterized by ground-glass opacifications and interstitial fullness in a perihilar distribution, three chamber dilation including the left atrium, and bilateral pleural effusions. 3. Acute on chronic diastolic heart failure. 4. SIRS without clear-cut source of infection. DISCUSSION AND PLAN: I will check a BNP. Antibiotics including vancomycin and Zosyn will be interrupted as we do not have any evidence of a conventional consolidating pneumonia present on the CT of the chest. If it is infectious, it is likely fungal, or atypical. I am doubtful that conventional antibiotics are going to be helpful here, particularly with the negative procalcitonin x2. IV fluids will be interrupted as the patient is significantly volume overloaded. I will give him multiple doses of Lasix. I am going to discontinue the high-flow nasal cannula , and put him on BiPAP. We will wean FiO2 away as tolerated. If the BNP is elevated , an echocardiogram will be pursued. The infiltrates on the CT scan are not characteristic of tuberculosis. Multiple studies including fungal studies and viral studies are currently pending. I will follow up with the results of those things through time. We will add a magnesium to tomorrow morning's laboratories as my suspicion is he is going to diurese very well. Pulmonary/Critical Care will follow very closely. He will need to remain in the IMCU for the time being. 70 minutes have been devoted to this patient in various activities. I personally reviewed all imaging studies and laboratory data noted within this document. For fifty percent of this time, I was interacting with the patient at the bedside or coordinating care with the care team. For the remainder of the time I was immediately available to the patient in the hospital unit. Job ID: [id number] [facility]
[2019-03-08] MEDS: Atorvastatin Calcium 10 MG TAB PO SCH (19:37)
[2019-03-08] MEDS: Melatonin 3 MG TAB PO PRN (19:37)
[2019-03-08] MEDS: Aspirin Chewable 81 MG TAB PO SCH (19:38)
[2019-03-09] MEDS: Morphine 2 MG/ML SYRINGE SLOW IVP PRN (01:12)
[2019-03-09 04:42] LABS: Anion Gap 10 mmol/L (10-20); BUN (Urea Nitrogen) 5 mg/dL (8.4-25.7); Calc. Creatinine Clearance 107 mL/min (70-130); Calcium 8.1 mg/dL (7.8-10.44); Carbon Dioxide 28 mmol/L (23-31); Chloride 103 mmol/L (98-107); Estimated GFR-MDRD Greater than 90; Glucose 85 mg/dL (83-110); Phosphorus 2.3 mg/dL (2.3-4.7); Potassium 3.4 mmol/L (3.5-5.1); Sodium 138 mmol/L (136-145)
--- NOTE | 2019-03-09 05:45 | PDOC.FM ---
- Subjective Subjective: Pt states he continues to improve. He was seen by Dr. Parker yesterday and given lasix. He is diuresing well. Dyspnea has improved requiring no oxygen at rest. - Objective Vital Signs & Weight: Vital Signs (12 hours) Temp Pulse Ox 03/09/19 04:00 98.9 F 03/09/19 02:47 95 03/08/19 23:10 98.8 F 03/08/19 20:00 95 03/08/19 19:55 99.0 F 03/08/19 18:14 100.0 F H Weight Weight 87.77 kg Most Recent Monitor Data Heart Rate from ECG 91 NIBP 137/86 NIBP BP-Mean 103 Respiration from ECG 15 SpO2 92 I&O: 03/07/19 03/08/19 03/09/19 06:59 06:59 06:59 Intake Total 4100 5040 630 Output Total 1675 1450 2425 Balance 2425 3590 -1795 Result Diagrams: 03/09/19 03:47 03/09/19 03:47 Phys Exam - Physical Examination Constitutional: NAD HEENT: PERRLA, moist MMs Respiratory: no wheezing, no rales, clear to auscultation bilateral Cardiovascular: RRR, no significant murmur Gastrointestinal: soft, non-tender Musculoskeletal: no edema, pulses present Psychiatric: normal affect, A&O x 3 Dx/Plan (1) Bilateral pneumonia Code(s): J18.9 - PNEUMONIA, UNSPECIFIED ORGANISM Status: Acute (2) Community acquired bilateral lower lobe pneumonia Code(s): J18.9 - PNEUMONIA, UNSPECIFIED ORGANISM Status: Acute (3) Crohn disease Code(s): K50.90 - CROHN'S DISEASE, UNSPECIFIED, WITHOUT COMPLICATIONS Status: Acute (4) Immunosuppression due to drug therapy Code(s): Z79.899 - OTHER [place] (CURRENT) DRUG THERAPY Status: Acute (5) Spinal stenosis Code(s): M48.00 - SPINAL STENOSIS, SITE UNSPECIFIED Status: Acute (6) Hyperlipemia Code(s): E78.5 - HYPERLIPIDEMIA, UNSPECIFIED Status: Acute - Plan Plan: Pt is a 73 yo male with PMH significant for Crohn's on Humira, spinal stenosis w / L3-L4 laminectomy 03/03/19 who presents for bilateral pneumonia. # Bilateral Community Acquired Pneumonia # Sepsis - tachycardia, febrile Tmax 104, tachypneic # Acute Hypoxic Respiratory Failure Pt presents s/p laminectomy day 3. Likely atalectasis playing a role. CXR bilateral infiltrates. CTA for PE negative. WBC WNL, neutrophils elevated. Pt is immunocompromised, taking humira, will cover for pseudomonas, MRSA. Lactic 1.3. ABG on admission revealed an pO2 49.1, pt requried 5 L NC in EDto remain in mid 90's. Admitted to IMCU, careful monitoring respiratory status, pt is full code. Family states pt is confused. CURB-65: 3. Day 2 pt has no WBC elevation, no bands. Procal negative x 2. Day 3 continue current care. Pt slept well with melatonin. Will attempt weaning oxygen again today. Pt's mentation was aaox3 this morning but became delirious yesterday likely secondary to hypoxia while weaning o2. Ordered sputum cultures , AFB culture, fungal culture, quant gold test in hopes to find etiology of likely infection. Dr. Parker saw pt, discontinued abx as he thinks this is less of a bacterial infection, started lasix for fluid noted on CTA. Day 4 pt diuresing well. He was on RA with good oxygen saturations. Early in the morning he felt fine and wanted to leave AMA but after some time decided to stay one more day. He has no complaints. Cultures as above, histo, myocoplama pending. - continue spirometer # S/P Laminectomy - Dr. Randhawa evaluated pt in ED, appreciate rec's. - [place] for pain # Crohn's - Continue home meds - GI unofficially consulted for update per family request. Appreciate GI for following up with family while admitted. # HLD - continue home meds # GERD - continue home meds # Constipation - Senna scheduled # Bladder Dysfunction - continue home meds # Normocytic Anemia, Anemia of Chronic Disease - Hgb 11.3 on 03/07/19 - Iron 20, TIBC 183, Ferritin 205, B12/Folate WNL, Retic 3.3 Fluids: LR 125 mls/hr Diet: HH VTE: Lovenox Dispo: pt will require > 48 hr stay
[2019-03-09] MEDS ORDERED: Potassium Chloride 20 MEQ TAB PO SCH ×2 (06:00→15:15)
[2019-03-09 06:04] LABS: Band 22 % (5-11); Eosinophils 2 % (0-10); Hemoglobin 11.1 g/dL (14.0-18.0); Lymphocytes 30 % (21-51); MDiff Complete? YES; Mean Corpuscular HGB CONC 33.3 g/dL (32.0-36.0); Mean Corpuscular Hemoglobin 28.8 pg (27.0-31.0); Mean Corpuscular Volume 86.6 fL (78.0-98.0); Monocytes 12 % (0-10); Neutrophil 34 % (42-75); Platelet Count 179 thou/uL (130-400); RBC Distribution Width 13.2 % (11.5-14.5); Red Blood Cell (RBC) Count 3.86 mill/uL (4.70-6.10); White Blood Cell (WBC) Count 3.6 thou/uL (4.8-10.8)
[2019-03-09] MEDS: HYDROcodone/Acetaminophen 5/325 mg Tablet PO PRN (06:28)
[2019-03-09] MEDS ORDERED: Magnesium Oxide 400 MG TAB PO SCH (09:00)
[2019-03-09] MEDS ORDERED: Furosemide 40 MG/4 ML VIAL SLOW IVP SCH (09:00)
[2019-03-09] MEDS ORDERED: Adalimumab [Humira Pen] 40 MG SC SCH (09:00)
--- NOTE | 2019-03-09 09:42 | PRG ---
DATE OF SERVICE: 03/09/2019 This is Gabe Swanson PA-C dictating a report for Reynaldo Randhawa MD. This is a postoperative recheck. 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 He was readmitted on Saturday due to bilateral pulmonary effusion and likely pneumonia. Overall, the patient and his state he is improving during his hospital stay. He is being weaned off his oxygen. His oxygen saturation is stable. His temperature max was 101.5 yesterday at 4 p.m. Currently, he is afebrile. He has been a little bit tachycardic. He is scheduled to resume his aspirin and Humira today, but we have discontinued these as he is also on Lovenox. We would like to hold on the Humira secondary to the patient's already immunocompromised state. We have also placed a max dosage on his Toradol of 5 doses. Overall, however, it does appear as though medically the patient is improving, although he does have some decreased white blood cell count, his hemoglobin is stable, and his sodium is also stable. We will continue to follow, though, from a neurosurgical standpoint, the patient has excellent strength in his legs. He has been able to stand but not yet doing a significant amount of walking. I would like him to work closely with physical therapy today, but hopefully he may be able to go home as early as tomorrow if he continues to improve. The patient and his are satisfied with this plan. Please call with any changes in the patient's neurologic status. Job ID: [id number]
[2019-03-09] MEDS: Senokot S 8.6-50 MG TAB PO SCH ×2 (09:53→20:33)
[2019-03-09] MEDS: Enoxaparin Sodium 40 MG/0.4 ML SYRINGE SC SCH (09:53)
[2019-03-09] MEDS: Trospium 20 MG TAB PO SCH (09:54)
[2019-03-09] MEDS: Tamsulosin HCl 0.4 MG CAP PO SCH (13:39)
--- NOTE | 2019-03-09 14:54 | PRG ---
DATE OF SERVICE: 03/09/2019 ADDENDUM: Please add this as an addendum to the note of Dr. Pavan Alvarado. I read the note of Dr. Alvarado, and agree with his assessment and plan. Mr. Harry looks and feels much better, and is likely ready for discharge after seen by Pulmonology. Job ID: [id number]
[2019-03-09] MEDS ORDERED: Magnesium Sulfate 4 GM in Sodium Chloride 0.9% 250 ML 250 ML IVPB SCH (15:15)
--- NOTE | 2019-03-09 15:25 | PRG ---
DATE OF SERVICE: 03/09/2019 SERVICE: Pulmonary Medicine. INTERVAL HISTORY: The patient is doing great from respiratory standpoint. With one dose of Lasix, he diuresed fantastically. He went from 55% high-flow nasal cannula requiring into BiPAP. 2 hours later, he was on 0.5 L nasal cannula, doing fantastic. He did spike a fever yesterday. That being said, he is otherwise returning to his usual state of health. PHYSICAL EXAMINATION: VITAL SIGNS: Afebrile currently. His T-max yesterday was 101.5. Pulse 93, blood pressure 144/81, respirations 15, saturation 95%, currently on room air. GENERAL: The patient is awake and alert, in no apparent distress. LUNGS: Wonderful air entry. Much improvement and the crackles are present. No prolonged expiratory phase or wheezing is appreciated. HEART: Normal rate and regular. ABDOMEN: Soft, nontender, nondistended. Bowel sounds are positive. MUSCULOSKELETAL: No cyanosis or clubbing. There is 1 to 2+ pitting in the bilateral lower extremities, but is significantly better now limited to the ankles. LABORATORY DATA: WBC 3.6, hemoglobin 11.1, platelets 179,000. Neutrophils are 34% on top of 22% bands. Potassium 3.4, magnesium 1.4. Phosphorus falls well within normal limits. Urinalysis is unremarkable. Legionella and strep antigen are negative. Blood cultures x2, urine culture, and influenza A and B are negative. A respiratory virus panel is unremarkable. ASSESSMENT: 1. Acute hypoxic respiratory failure. 2. Abnormal CT characterized by ground-glass opacifications, and interstitial fullness in a perihilar distribution with three chamber dilation including left atrium and bilateral pleural effusions. 3. Acute on chronic diastolic heart failure. 4. Systemic inflammatory response syndrome without a clear source. DISCUSSION AND PLAN: I am not certain what his sepsis profile is coming from, but I am doubtful that it is from the lungs. It may be for a transient viremia from his herpetic outbreak. The changes in the lung could very well be viral in origin. That being said, he had a profound improvement with nothing more than a dose of Lasix. As such, I am inclined to believe the CT changes identified on the lung were primarily secondary to volume overload event associated with his recent surgery, and resuscitation. Clinically, the patient has made a significant headway. As such, we will continue to screen for additional evidence of infection. Multiple studies directed at identifying atypical organisms are currently pending. At this point, he is stable for transition to the medical and/or surgical unit. Pulmonary will continue to follow however. Job ID: [id number]
[2019-03-09] MEDS ORDERED: Acetaminophen 500 MG TAB PO PRN (17:34)
[2019-03-09] MEDS: Atorvastatin Calcium 10 MG TAB PO SCH (20:39)
[2019-03-10 04:08] VITALS: TEMP 98.5
[2019-03-10 04:48] LABS: Anion Gap 13 mmol/L (10-20); BUN (Urea Nitrogen) 6 mg/dL (8.4-25.7); Calc. Creatinine Clearance 103 mL/min (70-130); Calcium 8.1 mg/dL (7.8-10.44); Carbon Dioxide 22 mmol/L (23-31); Chloride 107 mmol/L (98-107); Estimated GFR-MDRD Greater than 90; Glucose 83 mg/dL (83-110); Magnesium 2.2 mg/dL (1.6-2.6); Sodium 138 mmol/L (136-145)
--- NOTE | 2019-03-10 05:48 | PDOC.FM ---
- Subjective Subjective: Pt is doing well today. He has no complaints. He is tolerating room air well. He denies fever, chills. - Objective Vital Signs & Weight: Vital Signs (12 hours) Temp Pulse Resp BP Pulse Ox 03/10/19 04:00 98.5 F 86 18 147/83 H 96 03/10/19 00:00 98.8 F 90 16 130/64 93 L 03/09/19 20:40 92 L 03/09/19 20:03 98.5 F 85 18 150/75 H 92 L 03/09/19 18:10 98.4 F 89 16 161/83 H 91 L Weight Weight 87.77 kg Most Recent Monitor Data Heart Rate from ECG 93 NIBP 144/81 NIBP BP-Mean 102 Respiration from ECG 15 SpO2 95 I&O: 03/08/19 03/09/19 03/10/19 06:59 06:59 06:59 Intake Total 5040 630 1280 Output Total 1450 2425 1200 Balance 3590 -1795 80 Result Diagrams: 03/09/19 03:47 03/10/19 04:18 Phys Exam - Physical Examination Respiratory: no wheezing, clear to auscultation bilateral Cardiovascular: RRR, no significant murmur Gastrointestinal: soft, non-tender, no distention Musculoskeletal: no edema, pulses present Dx/Plan (1) Bilateral pneumonia Code(s): J18.9 - PNEUMONIA, UNSPECIFIED ORGANISM Status: Acute (2) Community acquired bilateral lower lobe pneumonia Code(s): J18.9 - PNEUMONIA, UNSPECIFIED ORGANISM Status: Acute (3) Crohn disease Code(s): K50.90 - CROHN'S DISEASE, UNSPECIFIED, WITHOUT COMPLICATIONS Status: Acute (4) Immunosuppression due to drug therapy Code(s): Z79.899 - OTHER [place] (CURRENT) DRUG THERAPY Status: Acute (5) Spinal stenosis Code(s): M48.00 - SPINAL STENOSIS, SITE UNSPECIFIED Status: Acute (6) Hyperlipemia Code(s): E78.5 - HYPERLIPIDEMIA, UNSPECIFIED Status: Acute - Plan Plan: Pt is a 73 yo male with PMH significant for Crohn's on Humira, spinal stenosis w / L3-L4 laminectomy 03/03/19 who presents for bilateral pneumonia. # Bilateral Community Acquired Pneumonia # Sepsis - tachycardia, febrile Tmax 104, tachypneic # Acute Hypoxic Respiratory Failure Pt presents s/p laminectomy day 3. Likely atalectasis playing a role. CXR bilateral infiltrates. CTA for PE negative. WBC WNL, neutrophils elevated. Pt is immunocompromised, taking humira, will cover for pseudomonas, MRSA. Lactic 1.3. ABG on admission revealed an pO2 49.1, pt requried 5 L NC in EDto remain in mid 90's. Admitted to IMCU, careful monitoring respiratory status, pt is full code. Family states pt is confused. CURB-65: 3. Day 2 pt has no WBC elevation, no bands. Procal negative x 2. Day 3 continue current care. Pt slept well with melatonin. Will attempt weaning oxygen again today. Pt's mentation was aaox3 this morning but became delirious yesterday likely secondary to hypoxia while weaning o2. Ordered sputum cultures , AFB culture, fungal culture, quant gold test in hopes to find etiology of likely infection. Dr. Parker saw pt, discontinued abx as he thinks this is less of a bacterial infection, started lasix for fluid noted on CTA. Day 4 pt diuresing well. He was on RA with good oxygen saturations. Early in the morning he felt fine and wanted to leave AMA but after some time decided to stay one more day. He has no complaints. Cultures as above, histo, myocoplama pending. Day 5 pt is doing well. He was unable to produce sputum, will not be able to collect labs. He is doing well without oxygen. Dr. Parker saw pt and believes he is ready for discharge. - continue spirometer # S/P Laminectomy - Dr. Randhawa evaluated pt in ED, appreciate rec's. - [place] for pain # Crohn's - Continue home meds - GI unofficially consulted for update per family request. Appreciate GI for following up with family while admitted. # HLD - continue home meds # GERD - continue home meds # Constipation - Senna scheduled # Bladder Dysfunction - continue home meds # Normocytic Anemia, Anemia of Chronic Disease - Hgb 11.3 on 03/07/19 - Iron 20, TIBC 183, Ferritin 205, B12/Folate WNL, Retic 3.3 Fluids: LR 125 mls/hr Diet: HH VTE: Lovenox Dispo: pt will require > 48 hr stay
[2019-03-10] MEDS ORDERED: Furosemide 20 MG/2 ML VIAL SLOW IVP SCH (06:00)
[2019-03-10 08:28] VITALS: BP 136/78
[2019-03-10] MEDS: Enoxaparin Sodium 40 MG/0.4 ML SYRINGE SC SCH (08:46)
[2019-03-10] MEDS: Senokot S 8.6-50 MG TAB PO SCH (08:57)
[2019-03-10] MEDS: Trospium 20 MG TAB PO SCH (08:57)
--- NOTE | 2019-03-10 12:24 | PQF ---
EWA PARRISH SPENCER DO *r [id number] [id number] CLINICAL DOCUMENTATION IMPROVEMENT CLARIFICATION FORM: ICD-10 Updated PLEASE DO AN ADDENDUM TO THE PROGRESS NOTE WITH ANY DOCUMENTATION UPDATES OR ADDITIONS AND CARRY THROUGH TO DC SUMMARY. THANK YOU. DATE: 03/10/19 ATTN: Dr. Alvarado Please exercise your independent, professional judgment in responding to the clarification form. Clinical indicators are provided on the bottom of this form for your review Please check appropriate box(s): [ x] Encephalopathy: Type: [ x ] Acute [ ] Subacute [ ] Chronic Etiology: [ x ] Metabolic [ ] Septic [ ] CVA [ ] Unspecified [ ] in the setting of underlying dementia [ ] Other (please specify) [ ] Transient Alteration of Awareness [ ] Other diagnosis [ ] Unable to determine In addition, please specify: Present on Admission (POA): [ x ] Yes [ ] No [ ] Unable to determine For continuity of documentation, please document condition throughout progress notes and discharge summary. Thank You. CLINICAL INDICATORS - SIGNS / SYMPTOMS / LABS / RESULTS AND LOCATION IN EMR Altered mental status / confusion--> 03/06 Christiano: "pt is confused" Metabolic / electrolyte abnormality--> 03/06 Sodium 133 "Sepsis" per H&P 03/06 Christiano CXR: impressive b/l PNA RISK FACTORS / RESULTS AND LOCATION IN EMR Infectious process--> 03/06 Christiano: "Sepsis, bilateral pneumonia" Electrolyte imbalance--> 03/06 Christiano: "hyponatremia" TREATMENTS / RESULTS AND LOCATION IN EMR IV antibiotics--> Vancomycin 1.5 gm 03/06;Vancomycin 1.25 12/7-128 and Zosyn 4.5 gm 12/6-12/8 per orders IV fluids--> 03/06 ED 2L NS once then LR at 125 /6-128 per orders (This form is maintained as a part of the permanent medical record) 2014 [employer]. All Rights Reserved Rachelle Leo RN, BSN, CCDS [email or web address] [phone] MTDD
--- NOTE | 2019-03-10 13:32 | PRG ---
DATE OF SERVICE: 03/10/2019 SERVICE: Pulmonary Medicine. INTERVAL HISTORY: The patient is doing great from respiratory standpoint. He is on room air. He denies having any shortness of breath or chest discomfort. There were no significant overnight events. PHYSICAL EXAMINATION: VITAL SIGNS: Afebrile, pulse 97, blood pressure 136/78, respirations 18, saturation 93% on room air. GENERAL: The patient is awake and alert, in no apparent distress. LUNGS: Much improved air entry. Minimal dependent crackles are noted. There is no prolonged expiratory phase or wheezing appreciated. HEART: Normal rate, regular. ABDOMEN: Soft, nontender, nondistended, bowel sounds are positive. MUSCULOSKELETAL: No cyanosis or clubbing. There is trace pitting in bilateral lower extremities, which is dramatically improved. NEUROLOGIC: Grossly nonfocal. LABORATORIES: The basic metabolic profile is completely unremarkable. Magnesium 2.2 and roughly stable. All culture results are negative to date. IMAGING: Echocardiogram demonstrates normal ejection fraction, mild diastolic dysfunction. Moderate to severe tricuspid regurgitation is noted. Moderate mitral regurgitation is present. ASSESSMENT: 1. Acute hypoxic respiratory failure, resolved. 2. Acute on chronic diastolic heart failure. 3. Moderate mitral regurgitation and severe tricuspid regurgitation. 4. Systemic inflammatory response syndrome without clear source. 5. Abnormal CT, characterized by ground-glass opacifications, interstitial fullness and three chamber dilation include left atrium and bilateral pleural effusions. DISCUSSION AND PLAN: At this point, the respiratory failure has completely resolved. He went from requiring high-flow nasal cannula at 50% FiO2 to room air over a matter of 2 to 3 hours following a dose of Lasix. As such, my suspicion is that all of the CT chest findings we identified were associated with volume overload event. He responded beautifully to Lasix. At this point, he has no pulmonary requirements to the keep him in the hospital. He will need a repeat chest x-ray in 4 to 6 weeks in the outpatient basis to verify these infiltrates have cleared. He has no further requirements for inpatient Pulmonary/Critical Care opinion, and I will sign off. I have counseled the patient with his at bedside that should he developed any recrudescence in sepsis profile (patient has been afebrile x2 days), he is to notify his primary care physician. Job ID: [id number]
--- NOTE | 2019-03-10 14:49 | PRG ---
DATE OF SERVICE: 03/10/2019 This is Gabe Swanson PA-C dictating a report for Reynaldo Randhawa MD. 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 The patient's oxygenation saturation has been intermittently low and he has required intermittent oxygen. Otherwise, he feels very good in regard to his low back and legs. He has been up walking with therapies. He would really like to go home and at this point from neurosurgical standpoint, I am fine with that pending his improved pulmonary status and oxygenation. On physical exam, he is awake, alert, and has excellent strength in the bilateral lower extremities. He may resume his aspirin 81 mg starting tomorrow. Please call with any changes in the patient's neurologic status, although from neurosurgical standpoint, the patient is ready to go home. Job ID: [id number]
[2019-03-10 22:07] LABS: Mycoplasma pneumoniae IgG AB 220 U/mL (0-99); Mycoplasma pneumoniae IgM AB Less than 770 U/mL (0-769)
--- NOTE | 2019-03-11 06:49 | PQF ---
[employer] Winform ViewerDAEWA RECIO JOSEPH [id number] ONC-135 [id number] CLINICAL DOCUMENTATION CLARIFICATION FORM: POST DISCHARGE Addendum to original discharge summary date: ____ Late entry note date: __ DATE: 03/11/2019 ATTN:KATIA MORROW Please exercise your independent, professional judgment in responding to the clarification form. Clinical indicators are provided on the bottom of this form for your review Please check appropriate box(s): [ ] Pneumonia with sepsis is a complication of current/recent surgery [ ] Pneumonia without sepsis is a complication of current/recent surgery with SIRS [ ] Pneumonia with sepsis is a not complication of current/recent surgery [ ] Pneumonia without sepsis is a not complication of current/recent surgery with SIRS [ ] Other diagnosis ____With near certainty, there was never a pneumonia. ____ ___ [ ] Unable to determine In addition, please specify: Present on Admission (POA): [ ] Yes [ ] No [ ] Unable to determine CLINICAL INDICATORS - SIGNS / SYMPTOMS / LABS Dyspnea , tachycardia, fearer - Documented in H&P on 03/06 by Christiano Cruz Bilateral Community Acquired pneumonia - Documented in H&P on 03/06 by Christiano Cruz Sepsis - Documented in H&P on 03/06 by Christinao Cruz S/P laminectomy likely atelectasis playing role, CXR bilateral infiltrate - Documented in H&P on 03/06 by Christiano Cruz Post op day 4 patient return fever, xray , lab was done which is notable for development of bilateral Pneumonia - Documented in PNs on 03/07 by Tank Mandujano RISK FACTORS hx of Spinal stenosis and 3 days post L3-L4 Laminectomy by - Documented in H&P on 03/06 by Christiano Cruz Acute hypoxic respiratory failure - Documented in H&P on 03/06 by Christiano Cruz TREATMENT: Continue Vancomycin and Zosyn [employer] Hand Model Crystal [employer] Win[id number] , [employer]. All Rights Reserved Bull [email or web address] [not provided] (This form is maintained as a part of the permanent medical record) [facility]
--- NOTE | 2019-03-11 08:02 | PRG ---
DATE OF SERVICE: 03/10/2019 ADDENDUM: To the note of Dr. Pavan Alvarado. I agree with the assessment and plan of Dr. Pavan Alvarado. Job ID: [id number]
[2019-03-17 03:08] LABS: QuantiFERON-TB Gold Plus Negative (Negative)
== END 2019-03-10 12:40 | disposition home or self-care (01) | DRG 871 ==
LOC: ERS 08:54 → IMCU/EMU 12:43 → ONC 03-09 18:15
PROVIDERS: ADMIT Family Medicine; ATTEND Family Medicine
DX: A41.9 Sepsis, unspecified organism (principal); J18.9 Pneumonia, unspecified organism; J96.01 Acute respiratory failure with hypoxia; I50.33 Acute on chronic diastolic (congestive) heart failure; G93.41 Metabolic encephalopathy; K50.90 Crohn's disease, unspecified, without complications; E87.1 Hypo-osmolality and hyponatremia; E78.5 Hyperlipidemia, unspecified; K21.9 Gastro-esophageal reflux disease without esophagitis; M48.00 Spinal stenosis, site unspecified; G89.29 Other chronic pain; K59.00 Constipation, unspecified; D64.9 Anemia, unspecified; Z79.82 Long term (current) use of aspirin; Z90.49 Acquired absence of other specified parts of digestive tract; Z79.899 Other long term (current) drug therapy
CPT/HCPCS: 36415; 36416; 71045; 71275; 76000; 80048; 80053; 80202; 81003; 81015; 82607; 82728; 82746; 82805; 83540; 83550; 83605; 83735; 83880; 84100; 84145; 85007; 85025; 85027; 85046; 86480; 87040; 87086; 87385; 87449; 87633; 87804; 87899; 93005; 93010; 93306; 93970; 94660; 94760; 96361; 96365; 96367; J0690; J1650; J1885; J1940; J2270; J2405; J2543; J2704; J3010; J3370; J3475; J3490; J7050; Q9967

== ENCOUNTER 2019-03-16 09:35 | Outpatient (CLI) | payer MEDICARE ==
--- NOTE | 2019-03-16 09:55 | RAD ---
XR Chest Pa Lat STANDARD HISTORY: Shortness of breath COMPARISON: 03/06/2019 FINDINGS: The heart size enlarged. The aorta is tortuous. The infiltrates in the left upper lobe have resolved. Residual linear markings are noted in the lower lung jones. No pneumothoraces or pleural effusions are seen. Postop changes in the shoulder joints are again noted. Dorsal spinal stab ility is again noted. IMPRESSION: Interval improvement since 03/06/2019.
== END 2019-03-16 09:36 | disposition home or self-care (01) ==
LOC: BICRAD 09:35
PROVIDERS: ATTEND Family Medicine
DX: R06.02 Shortness of breath (principal)
CPT/HCPCS: 71046

== ENCOUNTER 2019-05-21 07:46 | Outpatient (CLI) | payer MEDICARE ==
--- NOTE | 2019-05-21 08:18 | RAD ---
4 views lumbar spine: 05/21/2019 COMPARISON: None HISTORY: Lumbar spondylolisthesis, prior back surgery FINDINGS: Atelectatic calcification of the abdominal aorta noted. Dorsal column stimulating leads ext ending into the thoracic region, incompletely imaged. Bilateral laminectomy changes at L4 and L5. Neutral lateral imaging demonstrates anterolisthesis at L4-5 measuring 4 mm, slightly increased on fl exion to 6 mm and decreased on extension to approximately 3 mm. Bilateral facet hypertrophy at L4-5 and L5-S1. Disc space narrowing with degenerative endplate change and mild anterior osteophyte format ion at L5-S1. No acute fracture or dislocation. IMPRESSION: Postoperative and degenerative changes within the lumbar spine as described above.
== END 2019-05-21 07:47 | disposition home or self-care (01) ==
LOC: BICRAD 07:46
PROVIDERS: ATTEND Anesthesiology Pain Medicine
DX: M43.16 Spondylolisthesis, lumbar region (principal); M47.816 Spondylosis without myelopathy or radiculopathy, lumbar region; M47.817 Spondylosis without myelopathy or radiculopathy, lumbosacral region; Z98.890 Other specified postprocedural states
CPT/HCPCS: 72110

== ENCOUNTER 2019-06-03 06:44 | Day surgery (SDC) | payer MEDICARE ==
[2019-06-02 09:08] VITALS: BMI 25.8
[~2019-06-03 06:44] MED LIST: FLU VACC TS2019-20(65YR UP)/PF 180 MCG/0.5 ML SYRINGE IM ONE
[2019-06-03 07:54] VITALS: BP 126/82; TEMP 98.1
--- NOTE | 2019-06-03 10:04 | CT ---
CT lumbar spine with contrast: (CT lumbar myelogram) DATE: 06/03/2019 HISTORY: 73-year-old male with low back pain and bilateral lumbar radiculopathy. COMPARISON: Noncontrast CT of 06/06/2016 FINDINGS: There is a transitional level at the lumbosacral junction. Review of CTA of chest of 03/06/2019 demons trates 12 paired ribs. For the purposes of this report, the lowest rib-bearing level (with mildly hypoplastic ribs) will be designated as T12, and the first nonrib-bearing vertebra will be designated as L1. There are 4 standard lumbar type vertebrae, followed by the transitional level in which the dysplastic bilateral transverse processes are completely fused with the bilateral sacral alae. For th e purposes of this report, this will be designated as a sacralized L5, LSTV type IIIB. Vertebral body heights are maintained. Spinal cord stimulator lead enters the midthoracic spinal joe l, outside of the range covered on this CT. No pars interarticularis defects. No lumbar scoliosis. T10-11: Essentially normal. T11-12: Essentially normal. T12-L1: Conus medullaris terminates at this level. Minimal disc bulge. Otherwise normal. L1-2: No high-grade disc space narrowing. Mild disc bulge. Mild central spinal canal stenosis. Very m ild bilateral neural foraminal stenosis. L2-3: No high-grade disc space narrowing. Mild diffuse disc bulge. Mild bilateral neural foraminal st enosis. Mild ligamentum flavum thickening with mild bilateral degenerative facet changes. Moderate central spinal canal stenosis, unchanged. L3-4: No interval change in the mild grade 1 anterolisthesis of L3 on L4. No high-grade disc space na rrowing. Mild diffuse disc bulge. Severe bilateral facet DJD. The previously demonstrated severe central spinal canal stenosis has been relieved by decompressive midline laminectomy defect, resultin g in generous caliber of the spinal canal and thecal sac. Moderate bilateral neural foraminal stenosis is unchanged. L4-5: Severe disc space narrowing. New development of vacuum disc phenomenon. New development of new slight retrolisthesis of L4 on L5. New midline laminectomy defect relieving the previous central spinal canal stenosis. Currently, spinal canal and thecal sac caliber is generous. Small amount of so ft tissue density surrounding the right L5 nerve root in the right lateral recess (in contrast to the normal fat in the contralateral left side) cysts is consistent with postsurgical scar tissue in t he epidural space. Severe right facet DJD causes moderate to severe right neural foraminal stenosis, worse than before, with facet osteophyte indenting the exiting right L4 nerve root. Mild le ft facet DJD. Mild to moderate left neural foraminal stenosis. L5-S1: Sacralized L5. No central or neural foraminal stenosis. Hypoplastic bilateral facet joints. Hy poplastic disc space. 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 2) since the prior CT, new midline decompressive laminectomies at L3-4 and L4-5, relieving the previo usly demonstrated central spinal canal stenoses at those levels. 3) interval worsening of now moderate-severe right neural foraminal stenosis at L4-5 by severe right facet osteoarthrosis. 4) new postsurgical scar surrounding the right L5 nerve root at the right lateral recess at L4-5. 5) interval progression of moderate degenerative disc disease at L4-5. 6) moderate bilateral neural foraminal stenosis at L3-4, unchanged. 7) because of transitional level, the dermatomes may not exactly match the numbering system of nerve roots used in this report.
[2019-06-03] MEDS ORDERED: Iopamidol-M 200 41% 20 ML VIAL ONE (13:47)
--- NOTE | 2019-06-03 15:42 | RAD ---
Myelogram lumbar: DATE: 06/03/2019 HISTORY: 73-year-old male with low back pain and worsening bilateral lumbar radiculopathy. TECHNIQUE: Signed informed consent obtained. Instrumental Teacher views obtained. Patient placed prone on fluoroscopy table. Sk in of lower back prepped and draped in usual sterile fashion. 25-gauge needle used to apply buffered lidocaine. Entire procedure performed under standard sterile technique. 22-gauge spinal need le advanced from right paramedian interlaminar approach at L1-2. Upon return of clear CSF, a total of 5 mL of CSF was removed. Total of 10 mL Isovue-M 200 injected intrathecally. Needle removed. Patie nt tolerated procedure well. No complications. IMPRESSION: 1. Successful lumbar myelogram. 2. See separate report of subsequent CT lumbar myelogram.
== END 2019-06-03 09:45 | disposition home or self-care (01) ==
LOC: RAD 06:44
PROVIDERS: ATTEND Anesthesiology Pain Medicine
PROC: B02B1ZZ Computerized Tomography (CT Scan) of Spinal Cord using Low Osmolar Contrast (ICD-10-PCS; principal; 2019-06-03)
DX: M51.16 Intervertebral disc disorders with radiculopathy, lumbar region (principal); M43.16 Spondylolisthesis, lumbar region; M48.062 Spinal stenosis, lumbar region with neurogenic claudication; G47.33 Obstructive sleep apnea (adult) (pediatric); I11.0 Hypertensive heart disease with heart failure; I50.9 Heart failure, unspecified; G47.00 Insomnia, unspecified; K21.9 Gastro-esophageal reflux disease without esophagitis; E78.5 Hyperlipidemia, unspecified; K50.90 Crohn's disease, unspecified, without complications; G90.50 Complex regional pain syndrome I, unspecified; Z79.899 Other long term (current) drug therapy
CPT/HCPCS: 62304; 72132; Q9966

== ENCOUNTER 2020-01-13 07:29 | Outpatient (CLI) | payer MEDICARE ==
[2020-01-13] MEDS ORDERED: Iopamidol 370 76% 100 ML VIAL ONE (09:05)
--- NOTE | 2020-01-13 09:42 | CT ---
CT ABDOMEN AND PELVIS WITH IV CONTRAST: INDICATION: Abdominal pain. FINDINGS: Lung bases clear. The liver, spleen, and pancreas appear unremarkable. Stomach and duodenum unremar kable. Post cholecystectomy change. Adrenal glands normal. A small cystic lesion superior right kidney measures 1.4 cm. Tiny 1.0 cm cys t superior left kidney. Kidneys otherwise unremarkable. No evidence of hydronephrosis or urinary ca lculus. Small bowel loops appear normal. Appendix is not identified. Review of the colon shows stool in the right colon. The left colon is nondistended. I cannot exclud e mild mural thickening in the left colon, although evaluation of the colon wall is limited due to no ndistention. Recommend clinical correlation regarding colitis. Aorta shows atherosclerotic calcification without aneurysm. No adenopathy or free fluid. Images through the pelvis show mildly prominent prostate with prostate calcification. The urinary bl adder is mostly contracted and not well evaluated. Osseous structures unremarkable. The vertebral bodies maintain height and alignment. Degenerative d isk changes at L5-S1 are noted. IMPRESSION: No evidence of acute process. Mural thickening of the left colon cannot be excluded, but is not adeq uately evaluated. Recommend clinical correlation. POS: AH
== END 2020-01-13 07:30 | disposition home or self-care (01) ==
LOC: BICCT 07:29
PROVIDERS: ATTEND Family Medicine
DX: K50.90 Crohn's disease, unspecified, without complications (principal); R10.84 Generalized abdominal pain
CPT/HCPCS: 74177; Q9967

== ENCOUNTER → 2020-07-29 | Day surgery (SDC) | payer MEDICARE ==
[2020-07-27 12:05] VITALS: BMI 25.8
[2020-07-29 08:11] VITALS: BP 142/83; TEMP 98.2
== END ==
LOC: RAD 07:06
PROVIDERS: ATTEND Anesthesiology Pain Medicine
PROC: B02B1ZZ Computerized Tomography (CT Scan) of Spinal Cord using Low Osmolar Contrast (ICD-10-PCS; principal; 2020-07-29)
DX: M47.26 Other spondylosis with radiculopathy, lumbar region (principal); M48.062 Spinal stenosis, lumbar region with neurogenic claudication; M43.16 Spondylolisthesis, lumbar region; K50.90 Crohn's disease, unspecified, without complications; Z79.82 Long term (current) use of aspirin; Z79.899 Other long term (current) drug therapy; Z98.890 Other specified postprocedural states
CPT/HCPCS: 62304; 72100; 72132

== ENCOUNTER 2020-08-30 08:35 | Outpatient (CLI) | payer MEDICARE, OTHER ==
[2020-08-30 10:05] LABS: Hemoglobin 12.9 g/dL (13.5-17.5); Mean Corpuscular HGB CONC 33.3 g/dL (32.0-36.0); Mean Corpuscular Hemoglobin 29.4 pg (27.0-33.0); Mean Corpuscular Volume 88.2 fl (81.2-95.1); Mean Platelet Volume 10.3 fl (7.4-10.4); Platelet Count 207 10x3/uL (150-450); RBC Distribution Width 13.2 % (11.5-14.5); Red Blood Cell (RBC) Count 4.39 10x6/uL (4.32-5.72); White Blood Cell (WBC) Count 6.7 10x3/uL (3.5-10.5)
[2020-08-30 10:11] LABS: Bilirubin Neg (Negative); Blood, Urine Negative (Negative); Clarity Clear (Clear); Glucose, Urine (Dipstick) Normal (Negative); Ketone, Urine Negative (Negative); Leukocyte Negative (Negative); Nitrite Negative (Negative); Protein, Urine (Dipstick) Negative (Neg-Trace); Specific Gravity, Urine 1.015 (1.002-1.036); Urobilinogen Normal mg/dL (Less than 2)
[2020-08-30 10:27] LABS: Anion Gap 13 mmol/L (10-20); BUN (Urea Nitrogen) 16 mg/dL (8.4-25.7); Calc. Creatinine Clearance 0 mL/min (70-130); Calcium 9.4 mg/dL (7.8-10.44); Carbon Dioxide 26 mmol/L (23-31); Chloride 106 mmol/L (98-107); Glucose 90 mg/dL (83-110); Potassium 4.5 mmol/L (3.5-5.1); Sodium 140 mmol/L (136-145)
[2020-08-30 12:20] LABS: RBC/HPF None Seen HPF (0-3); Squamous Epithelial None Seen HPF (0-3); WBC/HPF None Seen HPF (0-3)
[2020-08-30 12:21] LABS: Bacteria/HPF None Seen HPF (None Seen)
[2020-08-30 20:37] LABS: SARS-CoV-2 PCR by NAA Not Detected (NotDetected)
== END 2020-08-30 08:36 | disposition home or self-care (01) ==
LOC: LABBT 08:35
PROVIDERS: ATTEND Urology
DX: Z01.812 Encounter for preprocedural laboratory examination (principal); N40.1 Benign prostatic hyperplasia with lower urinary tract symptoms; R35.1 Nocturia; Z20.822 Contact with and (suspected) exposure to COVID-19
CPT/HCPCS: 80048; 81001; 85027; 87086; U0003; U0005

== ENCOUNTER 2020-09-02 07:50 | Day surgery (SDC) | payer MEDICARE, OTHER ==
[2020-09-01 11:18] VITALS: BMI 25.8
[2020-09-02] MEDS ORDERED: Levofloxacin 500 mg/D5W 100 ml Premix Bag ONE (08:00)
[2020-09-02] MEDS ORDERED: Fentanyl 100 MCG/2 ML VIAL ONE (08:46)
[2020-09-02] MEDS ORDERED: Lidocaine 1% PF 5 ML VIAL ONE (09:08)
[2020-09-02] MEDS ORDERED: PHENYLEPHRINE-NS 100 MCG/ML 10 ML SYRINGE ONE (09:08)
[2020-09-02] MEDS ORDERED: Dexamethasone 20 MG/5 ML VIAL ONE (09:08)
[2020-09-02] MEDS ORDERED: Ondansetron PF 4 MG/2 ML Vial ONE (09:08)
[2020-09-02] MEDS ORDERED: PROPOFOL 200 MG/20 ML VIAL ONE (09:08)
[2020-09-02] MEDS ORDERED: Oxybutynin 5 MG TAB ONE (09:55)
[2020-09-02] MEDS ORDERED: Phenazopyridine HCl 100 MG TAB ONE (09:56)
[2020-09-02] MEDS ORDERED: Ketorolac Tromethamine 30 MG/ML VIAL ONE (10:51)
[2020-09-02] MEDS ORDERED: HYDROcodone/Acetaminophen 5/325 mg Tablet ONE (12:39)
== END 2020-09-02 13:25 | disposition home or self-care (01) ==
LOC: SDC 07:50
PROVIDERS: ATTEND Urology
PROC: 0T7D8DZ Dilation of Urethra with Intraluminal Device, Via Natural or Artificial Opening Endoscopic (ICD-10-PCS; principal; 2020-09-02)
DX: N40.1 Benign prostatic hyperplasia with lower urinary tract symptoms (principal); N13.8 Other obstructive and reflux uropathy; R35.1 Nocturia; N32.89 Other specified disorders of bladder; K50.90 Crohn's disease, unspecified, without complications; G47.33 Obstructive sleep apnea (adult) (pediatric); E78.5 Hyperlipidemia, unspecified; K21.9 Gastro-esophageal reflux disease without esophagitis; Z79.899 Other long term (current) drug therapy
CPT/HCPCS: C9740; L8699; J1100; J1885; J1956; J2405; J2704; J3010

== ENCOUNTER 2021-01-05 09:58 | Outpatient (CLI) | payer MEDICARE, OTHER ==
[2021-01-05 10:35] LABS: Bilirubin Neg (Negative); Blood, Urine 10 (Negative); Clarity Clear (Clear); Glucose, Urine (Dipstick) Normal (Negative); Ketone, Urine Negative (Negative); Leukocyte 25 (Negative); Nitrite Negative (Negative); Protein, Urine (Dipstick) Negative (Neg-Trace); Urobilinogen Normal mg/dL (Less than 2)
[2021-01-05 10:48] LABS: Bacteria/HPF 3+ HPF (None Seen); Mucous/LPF 1+ LPF (<2+); Squamous Epithelial 0-3 HPF (0-3)
[2021-01-05 11:40] LABS: Hemoglobin 14.7 g/dL (13.5-17.5); Mean Corpuscular HGB CONC 33.7 g/dL (32.0-36.0); Mean Corpuscular Hemoglobin 28.9 pg (27.0-33.0); Mean Corpuscular Volume 85.8 fl (81.2-95.1); Platelet Count 244 10x3/uL (150-450); RBC Distribution Width 12.4 % (11.5-14.5); Red Blood Cell (RBC) Count 5.08 10x6/uL (4.32-5.72); White Blood Cell (WBC) Count 6.1 10x3/uL (3.5-10.5)
[2021-01-05 12:12] LABS: Anion Gap 13 mmol/L (10-20); BUN (Urea Nitrogen) 15 mg/dL (8.4-25.7); Calc. Creatinine Clearance 0 mL/min (70-130); Calcium 9.9 mg/dL (7.8-10.44); Carbon Dioxide 25 mmol/L (23-31); Chloride 104 mmol/L (98-107); Glucose 93 mg/dL (83-110); Potassium 4.7 mmol/L (3.5-5.1); Sodium 137 mmol/L (136-145)
[2021-01-05 20:18] LABS: SARS-CoV-2 PCR by NAA Not Detected (NotDetected)
== END 2021-01-05 09:59 | disposition home or self-care (01) ==
LOC: LABBT 09:58
PROVIDERS: ATTEND Urology
DX: Z01.818 Encounter for other preprocedural examination (principal); N40.1 Benign prostatic hyperplasia with lower urinary tract symptoms; Z20.822 Contact with and (suspected) exposure to COVID-19
CPT/HCPCS: 80048; 81001; 85027; 87086; 93005; U0003; U0005; 87077; 87186; 93010

== ENCOUNTER 2021-01-10 07:54 | Inpatient (IN) | payer MEDICARE, OTHER ==
[2021-01-09 11:23] VITALS: BMI 25.8
[2021-01-10] MEDS ORDERED: Levofloxacin 500 mg/D5W 100 ml Premix Bag ONE (08:27)
[2021-01-10] MEDS ORDERED: Midazolam HCl 2 mg/2 ml Vial ONE ×2 (08:57→10:52)
[2021-01-10] MEDS ORDERED: Fentanyl 250 MCG/5 ML VIAL ONE (10:51)
[2021-01-10] MEDS ORDERED: Lidocaine 1% PF 5 ML VIAL ONE (11:04)
[2021-01-10] MEDS ORDERED: PROPOFOL 200 MG/20 ML VIAL ONE (11:04)
[2021-01-10] MEDS ORDERED: Succinylcholine 200 MG/10 ml SYRINGE FS ONE (11:04)
[2021-01-10] MEDS ORDERED: PHENYLEPHRINE-NS 100 MCG/ML 10 ML SYRINGE ONE ×3 (11:04→13:01)
[2021-01-10] MEDS ORDERED: Esmolol 100 MG/10 ML VIAL ONE (12:16)
[2021-01-10] MEDS ORDERED: Adenosine 6 MG/2 ML VIAL ONE ×2 (12:20→12:28)
[2021-01-10] MEDS ORDERED: Sodium Chloride 0.9% 10 ML ONE (12:28)
[2021-01-10] MEDS ORDERED: Amiodarone 150 MG/3 ML VIAL ONE (12:41)
[2021-01-10] MEDS ORDERED: Amiodarone 450 MG, Admixture Fee 1 EACH in Dextrose 5% in Water 250 ML IVPB SCH (13:30)
[2021-01-10] MEDS ORDERED: Acetaminophen 325 MG TAB PO PRN (13:59)
[2021-01-10] MEDS ORDERED: Enoxaparin Sodium 30 MG/0.3 ML SYRINGE SC SCH (14:00)
[2021-01-10] MEDS ORDERED: Ketorolac Tromethamine 30 MG/ML VIAL ONE (15:53)
[2021-01-10] MEDS ORDERED: Phenazopyridine HCl 100 MG TAB ONE (15:54)
[2021-01-10] MEDS ORDERED: Oxybutynin 5 MG TAB ONE (15:54)
[2021-01-10] MEDS ORDERED: Acetaminophen 325 MG TAB ONE (17:21)
[2021-01-10 19:29] LABS: #Lymphocytes 0.5 thou/uL (1.20-3.40); #Monocytes 0.1 thou/uL (0.11-0.59); #Neutrophils 6.3 thou/uL (1.40-6.50); %Basophils 0.1 % (0.0-1.0); %Eosinophils 0.1 % (0.0-10.0); %Lymphocytes 7.3 % (21.0-51.0); %Monocytes 0.9 % (0.0-10.0); %Neutrophils 91.5 % (42.0-75.0); Hemoglobin 14.4 g/dL (14.0-18.0); Mean Corpuscular HGB CONC 35.7 g/dL (32.0-36.0); Mean Corpuscular Hemoglobin 30.9 pg (27.0-31.0); Mean Corpuscular Volume 86.4 fL (78.0-98.0); Mean Platelet Volume 7.5 fL (7.4-10.4); Platelet Count 195 thou/uL (130-400); RBC Distribution Width 11.5 % (11.5-14.5); Red Blood Cell (RBC) Count 4.67 mill/uL (4.70-6.10); White Blood Cell (WBC) Count 6.9 thou/uL (4.8-10.8)
[2021-01-10 19:45] LABS: ALT (SGPT) 15 U/L (8-55); AST (SGOT) 19 U/L (5-34); Albumin 3.8 g/dL (3.4-4.8); Alkaline Phosphatase 55 U/L (40-110); Anion Gap 13 mmol/L (10-20); BUN (Urea Nitrogen) 13 mg/dL (8.4-25.7); Bilirubin, Total 0.6 mg/dL (0.2-1.2); Calc. Creatinine Clearance 81 mL/min (70-130); Calcium 8.5 mg/dL (7.8-10.44); Carbon Dioxide 21 mmol/L (23-31); Cardiac Risk 3.3 (Less than 4.5); Chloride 109 mmol/L (98-107); Cholesterol 156 mg/dl (< 200 Desired); Globulin 2.4 g/dL (2.4-3.5); Glucose 156 mg/dL (83-110); HDL Cholesterol 47 mg/dL (>60 Neg Risk); LDL Cholesterol, Calculated 102 mg/dL; Potassium 4.2 mmol/L (3.5-5.1); Protein, Total 6.2 g/dL (5.8-8.1); Sodium 139 mmol/L (136-145); Triglycerides 37 mg/dL (Less than 150)
[2021-01-10] MEDS ORDERED: Melatonin 3 MG TAB PO PRN (20:01)
[2021-01-10 20:04] LABS: Free T4 (Free Thyroxine) 1.22 ng/dL (0.70-1.48); Thyroid Stimulating Hormone 0.1798 uIU/mL (0.35-4.94)
[2021-01-10] MEDS: Oxybutynin 5 MG TAB PO SCH ×2 (20:55→22:25)
[2021-01-10] MEDS ORDERED: Aspirin Chewable 81 MG TAB PO SCH (22:00)
[2021-01-10] MEDS ORDERED: Atorvastatin Calcium 20 MG TAB PO SCH (22:00)
[2021-01-10] MEDS ORDERED: FLU VACC QS2021-22(65YR UP)/PF 240 MCG/0.7 ML SYRINGE IM ONE (23:00)
[2021-01-11 05:42] LABS: CKMB 3.1 ng/mL (0-6.6)
[2021-01-11] MEDS: Oxybutynin 5 MG TAB PO SCH (06:07)
[2021-01-11] MEDS ORDERED: Tamsulosin HCl 0.4 MG CAP PO SCH (09:00)
[2021-01-11] MEDS ORDERED: Multivit, Therapeutic 1 TAB PO SCH (09:00)
[2021-01-11] MEDS ORDERED: DULoxetine 60 MG CAP PO SCH (09:00)
[2021-01-11] MEDS ORDERED: Dutasteride 0.5 MG CAP PO SCH (09:00)
[2021-01-11 09:30] VITALS: TEMP 98.3
[2021-01-11 11:35] LABS: CKMB 3.2 ng/mL (0-6.6)
[2021-01-11 12:48] VITALS: BP 139/68
[2021-01-11] MEDS ORDERED: Apixaban 5 MG TAB PO SCH (21:00)
[2021-01-11] MEDS ORDERED: Aspirin Chewable 81 MG TAB PO SCH (21:00)
[2021-01-11] MEDS ORDERED: Atorvastatin Calcium 20 MG TAB PO SCH (21:00)
== END 2021-01-11 13:20 | disposition home or self-care (01) | DRG 988 ==
LOC: SDC 07:54 → 2NO 12:58
PROVIDERS: ADMIT Urology; ATTEND Urology
PROC: 0VB08ZZ Excision of Prostate, Via Natural or Artificial Opening Endoscopic (ICD-10-PCS; principal; 2021-01-10)
PROC: 0TPB8DZ Removal of Intraluminal Device from Bladder, Via Natural or Artificial Opening Endoscopic (ICD-10-PCS; 2021-01-10)
DX: I48.91 Unspecified atrial fibrillation (principal); N13.8 Other obstructive and reflux uropathy; K50.90 Crohn's disease, unspecified, without complications; I50.32 Chronic diastolic (congestive) heart failure; N40.1 Benign prostatic hyperplasia with lower urinary tract symptoms; D63.8 Anemia in other chronic diseases classified elsewhere; K21.9 Gastro-esophageal reflux disease without esophagitis; E78.5 Hyperlipidemia, unspecified; I08.0 Rheumatic disorders of both mitral and aortic valves; I95.9 Hypotension, unspecified; R31.9 Hematuria, unspecified; Z98.1 Arthrodesis status; Z90.49 Acquired absence of other specified parts of digestive tract; Z79.899 Other long term (current) drug therapy; Z79.82 Long term (current) use of aspirin
CPT/HCPCS: 36415; 80053; 80061; 82553; 83880; 84439; 84443; 84481; 84484; 85025; 88305; 93005; 93010; 93306; J0153; J0282; J1650; J1885; J1956; J2250; J2704; J3010; J7070

== ENCOUNTER 2021-04-19 08:14 | Outpatient (CLI) | payer MEDICARE, OTHER | END 2021-04-19 08:15 | disposition home or self-care (01) | LOC: BICRAD 08:14 | PROVIDERS: ATTEND Family Medicine | DX: J20.9 Acute bronchitis, unspecified (principal); R07.82 Intercostal pain | CPT/HCPCS: 71046 ==

== ENCOUNTER 2022-03-13 07:59 | Outpatient (CLI) | payer MEDICARE, OTHER | END 2022-03-13 08:00 | disposition home or self-care (01) | LOC: BICRAD 07:59 | PROVIDERS: ATTEND Family Medicine | DX: S06.9X0A Unspecified intracranial injury without loss of consciousness, initial encounter (principal) | CPT/HCPCS: 70260; 72040 ==

== ENCOUNTER 2022-05-09 08:18 | Outpatient (CLI) | payer MEDICARE | END 2022-05-09 08:19 | disposition home or self-care (01) | LOC: BICRAD 08:18 | PROVIDERS: ATTEND Family Medicine | DX: R05.9 Cough, unspecified (principal) | CPT/HCPCS: 71046 ==

== ENCOUNTER 2023-06-06 09:16 | Outpatient (CLI) | payer MEDICARE | END 2023-06-06 09:17 | disposition home or self-care (01) | LOC: BICRAD 09:16 | PROVIDERS: ATTEND Family Medicine | DX: J18.1 Lobar pneumonia, unspecified organism (principal) | CPT/HCPCS: 71046 ==

== ENCOUNTER 2024-01-20 09:34 | Outpatient (CLI) | payer MEDICARE | END 2024-01-20 09:35 | disposition home or self-care (01) | LOC: BICRAD 09:34 | PROVIDERS: ATTEND Family Medicine | DX: J20.9 Acute bronchitis, unspecified (principal); I10 Essential (primary) hypertension; E11.65 Type 2 diabetes mellitus with hyperglycemia; E78.00 Pure hypercholesterolemia, unspecified; E55.9 Vitamin D deficiency, unspecified; N39.0 Urinary tract infection, site not specified; M19.90 Unspecified osteoarthritis, unspecified site; R53.83 Other fatigue | CPT/HCPCS: 36415; 71046; 80053; 80061; 82306; 83036; 84443; 85025; 86140; 87086 ==